=== PATIENT | female | born 1965 | race African-American/Black ===

== ENCOUNTER → 2016-07-11 | Outpatient (CLI) | payer MEDICARE, OTHER ==
[2016-02-23 16:30] VITALS: BP 154/89
[~2016-07-11] MED LIST: ALBU18HF IH; AMLO10TA2 PO; AMLO10TA4 PO; ASCO500T3 PO; ASPI-482 PO; ASPI81TA2 PO; BACL10TA PO; BISA10SU55 RC; CA C1TAB28 PO; CALC0.5C PO; CALC600T4 PO; CALC667C PO; CALC667C6; CEPH-263 PO; CHOL10003 PO; CHOL20004 PO; CLON0.5T PO; CLON1TAB PO; CLON1TAB23 PO; CYAN1CRY MC; DIPH25CA58 PO; DIPH50CA PO; DOXY100T9 PO; FLUT16SP2 NS; GABA-586 PO; GENT3.5O7 OP; GENT30CR TP; HYDR-2672 PO; HYDR-963 PO; HYDR-971 PO; HYOS0.12 PO; LIDO700A4 TP; LUBI24CA5 PO; LURA40TA PO; METR70GE VG; MICO1KIT VG; MULT-18 PO; MULT-658 PO; MYCO500T PO; NEBI5TAB2 PO; NORT10CA3 PO; NORT50CA3 PO; NYST1POW2 PO; NYST1POW4 MC; OMEG1CAP6 PO; ONDA4TAB10 PO; ONDA4TAB7 PO; OXYB5TAB7 PO; OXYC-250 PO; OXYC5TAB PO; PANT40GR PO; PANT40TA3 PO; PENI500T PO; POLY17PO5 PO; POLYETHYLENE G500 G1 MC; PRED1DRO OP; PRED1DRO OU; PROM25AM6 IJ; PROM25SU33 RC; RENAL VITAMIN PO; SEA-OMEGA 50 C1 EACH PO; SENN1TAB21 PO; SENN8.6T11 PO; SODI650T PO; SUCR1TAB29 PO; SULF1TAB24 PO; TACR1CAP2 PO; TACR1CAP4 PO; TIZA4CAP PO; TIZA4TAB8 PO; VENL150C PO; ZINC220T PO
--- NOTE | 2016-07-11 14:04 | RAD ---
EXAM: DIGITAL DIAGNOSTIC BILATERAL. HISTORY: Palpable lump in the right breast for 2 weeks. Pain. COMPARISON: None. This is considered a new baseline. FINDINGS: Digital mammography was performed. Computer-aided detection (CAD) was utilized. A BB was placed in the lateral right breast in area of clinical concern. The breast parenchyma demonstrates scattered fibroglandular densities (tissue density B). No dominant suspicious mass, suspicious microcalcifications, or architectural distortion is identified. The BB appears to correspond to a 1.5 cm well-circumscribed mass which appears to have areas of internal fat. The mass measures 1.5 cm in maximum dimension and is thought to be located in the lateral right breast at approximately 9-10:00, 10 cm from the nipple. This is compatible with oil cyst versus hamartoma. IMPRESSION: 1.5 cm benign-appearing, fat-containing mass in the lateral right breast at 9-10:00, 10 cm from the nipple. BI-RADS CATEGORY: 2 BENIGN FINDING(S) RECOMMENDED FOLLOW-UP: 12M 12 MONTH FOLLOW-UP PQRS compliance statement: Patient information was entered into a reminder system with a target due date for the next mammogram. Mammography is a sensitive method for finding small breast cancers, but it does not detect them all and is not a substitute for careful clinical examination. A negative mammogram does not negate a clinically suspicious finding and should not result in delay in biopsying a clinically suspicious abnormality. "Our facility is accredited by the [employer] Mammography Program."
== END | disposition home or self-care (01) ==
LOC: MAMMO 12:47
PROVIDERS: ATTEND Physician Assistant Medical
DX: N63 Unspecified lump in breast (principal)
CPT/HCPCS: G0204; 77066

== ENCOUNTER → 2016-08-03 | Outpatient (CLI) | payer MEDICARE, OTHER ==
[2016-02-23 16:30] VITALS: BP 154/89
[~2016-08-03] MED LIST changes: +ASPI-630 PO; -ASPI81TA2 PO; -CHOL20004 PO; +CHOL200074 PO; -HYDR-2672 PO; +HYDR-2766 PO; -LUBI24CA5 PO; +LUBI24CA7 PO; -METR70GE VG; +METR70GE16 VG; -OXYC-250 PO; +OXYC-328 PO; -SUCR1TAB29 PO; +SUCR1TAB35 PO
--- NOTE | 2016-08-03 13:08 | RAD ---
Right foot, 3 views, 08/03/2016: History: Foot pain The bony structures are demineralized. No fracture or dislocation is identified. Arterial calcifications are present. There is mild subcutaneous edema. IMPRESSION: 1. Demineralization. 2. No acute bony abnormality is detected.
== END | disposition home or self-care (01) ==
LOC: DXRADRC 11:10
PROVIDERS: ATTEND Physician Assistant Medical
DX: M81.0 Age-related osteoporosis without current pathological fracture (principal); M79.671 Pain in right foot; R60.9 Edema, unspecified
CPT/HCPCS: 73630

== ENCOUNTER 2016-09-17 23:45 | Emergency (ER) | payer MEDICARE, OTHER ==
[~2016-09-17] VITALS: Ht 167.6 cm; Wt 102.2 kg
[2016-09-17 23:45] VITALS: BP 123/80
[2016-09-18] MEDS ORDERED: METOCLOPRAMIDE HCL 10 MG/2 ML VIAL. IV ONE (00:15)
[2016-09-18] MEDS: diphenhydrAMINE 50 MG/ML VIAL IVP ONE (00:15)
[2016-09-18] MEDS ORDERED: diphenhydrAMINE 50 MG/ML VIAL IVP ONE (00:15)
[2016-09-18] MEDS ORDERED: IV NORMAL SALINE 500ML 500 ML IV ONE (00:15)
[2016-09-18] MEDS: METOCLOPRAMIDE HCL 10 MG/2 ML VIAL. IV ONE (00:15)
--- NOTE | 2016-09-18 00:37 | RAD ---
CT scan of the head without contrast 09/18/2016 Clinical History: Headache for 2 months. Technique: Unenhanced, contiguous, 5 mm axial sections were obtained through the head. One or more of the following individualized dose reduction techniques were utilized for this study: 1. Automated exposure control. 2. Adjustment of the mA and/or kV according to patient size. 3. Use of iterative reconstruction technique. Findings: Comparison study is dated 03/26/2015. There is mild generalized parenchymal atrophy. No acute parenchymal abnormality is seen. No extra-axial fluid collection is noted. No skull fracture is seen. Impression: . No acute intracranial abnormality is seen. Electronically signed by: Luis Shepherd MD (09/18/2016 12:35 AM)
--- NOTE | 2016-09-18 01:13 | PHYS DOC ---
Past History Past Medical History: CHF, Hypertension, Renal Disease, Renal Failure, Other Past Surgical History: Cholecystectomy, Gastric Bypass, Hysterectomy, Other Smoking: Non-smoker Alcohol Use: None Drug Use: None Adult General Chief Complaint Chief Complaint: HEADACHE HPI HPI 50-year-old female with history of end-stage renal disease presenting to the emergency department today with a headache. Her headache started at 3:00 yesterday morning. She describes headaches as sharp moderate pain. It is nonradiating intermittent and without alleviating factors. She has a history of end-stage renal disease and gets dialysis on Monday and Monday. She reports not getting dialysis on Monday because she was not feeling well. She also reports having been admitted after having a fall and sustaining a "head bleed". She reports this occurred approximately 2 weeks ago. Review of systems is negative for neck stiffness confusion cyanosis lethargy numbness weakness or tingling. She denies vision changes. All other review of systems is negative unless otherwise noted in history of present illness. ED course: 50-year-old female presenting to the emergency department with headache. Triage vital signs afebrile with normal blood pressure. Pertinent physical exam findings showed normal neurologic exam. Negative Brudzinski's tests. Negative Kernig sign. Patient was given IV fluids with migraine cocktail. Blood work obtained. Head CT negative for acute pathology. Blood work showed hyperkalemia likely secondary to missing dialysis. Patient was given calcium, insulin and glucose, and bicarbonate. She was then admitted to [facility] for renal consultation and probable dialysis. I discussed the case with Dr. Aguirre who accepted her. Review of Systems Review of Systems SEE ABOVE. Current Medications Current Medications Current Medications Medications (Trade) Dose Ordered Sig/Vitaliy Start Time Stop Time Status Last Admin Dose Admin Diphenhydramine HCl (Benadryl) 25 mg 1X ONCE 09/18/16 00:15 09/18/16 00:16 DC Metoclopramide HCl (Reglan) 10 mg 1X ONCE 09/18/16 00:15 09/18/16 00:16 DC Sodium Chloride 500 ml @ 0 mls/hr 1X ONCE 09/18/16 00:15 09/18/16 00:16 DC Allergies Allergies Allergies Coded Allergies Type Severity Reaction Last Updated Verified Iodinated Contrast Media - Oral and Allergy Severe 08/03/14 Yes shellfish derived Allergy Intermediate 08/03/14 Yes caffeine Allergy Mild due to kidney transplant 08/03/14 Yes ibuprofen Allergy Mild 08/03/14 Yes red dye Allergy Mild due to kidney transplant 08/03/14 Yes I S O L A T I O N *CONTACT* Allergy Unknown 04/15/15 Yes Physical Exam Physical Exam Constitutional: Well developed, well nourished, no acute distress, non-toxic appearance. [] HENT: Normocephalic, atraumatic, bilateral external ears normal, oropharynx moist, no oral exudates, nose normal. [] Eyes: PERRLA, EOMI, conjunctiva normal, no discharge. [] Neck: Normal range of motion, no tenderness, supple, no stridor. [] Cardiovascular:Heart rate regular rhythm, no murmur [] Lungs & Thorax: Bilateral breath sounds clear to auscultation [] Abdomen: Bowel sounds normal, soft, no tenderness, no masses, no pulsatile masses. [] Skin: Warm, dry, no erythema, no rash. [] Back: No tenderness, no CVA tenderness. [] Extremities: No tenderness, no cyanosis, no clubbing, ROM intact, no edema. [] Neurologic: Mental status: Awake oriented and alert x3 Cranial nerves: Extraocular movements intact, eyebrows guido bilaterally smile symmetric, uvula elevation, shoulder shrug intact, tongue protrusion normal DTRs: 2+ Sensation: equal and normal in all extremities Strength: 5/5 in upper and lower extremities bilaterally Psychologic: Affect normal, judgement normal, mood normal. [] Current Patient Data Vital Signs Vital Signs Date Time Temp Pulse Resp B/P (MAP) Pulse Ox O2 Delivery O2 Flow Rate FiO2 09/17/16 23:45 98.4 82 20 100 Room Air EKG EKG EKG shows sinus rhythm with a regular rate. ST segments congruent. Intervals are within normal limits. Reviewed by myself [] Radiology/Procedures Radiology/Procedures [] Course & Med Decision Making Course & Med Decision Making Pertinent Labs and Imaging studies reviewed. (See chart for details) [] Dragon Disclaimer Dragon Disclaimer This chart was dictated in whole or in part using Voice Recognition software in a busy, high-work load, and often noisy Emergency Department environment. It may contain unintended and wholly unrecognized errors or omissions. Departure Departure: Impression: Primary Impression: Headache Additional Impressions: ESRD (end stage renal disease) Hyperkalemia Disposition: 02 XFER SHT-TRM HOSP ([facility]) Condition: STABLE Referrals: KARON ELLIS (PCP) Problem Qualifiers ZARIA SERRANO MD Sep 18, 2016 01:13
[2016-09-18] MEDS ORDERED: DEXAMETHASONE SOD PHOS 10 MG/ML VIAL IV ONE (01:30)
[2016-09-18 01:55] LABS: BASO % 0 % (0-3); EOS # 0.2 x10^3/uL (0.0-0.7); EOS % 3 % (0-3); HEMOGLOBIN 10.2 g/dL (12.0-15.5); LYMPH # 1.6 x10^3/uL (1.0-4.8); LYMPH % 26 % (24-48); MEAN CORPUSCULAR HEMOGLOBIN 31 pg (25-35); MEAN CORPUSCULAR HGB CONC 33 g/dL (31-37); MEAN CORPUSCULAR VOLUME 95 fL (79-100); MONO # 0.8 x10^3/uL (0.0-1.1); MONO % 13 % (0-9); NEUT # 3.5 x10^3uL (1.8-7.7); NEUT % 57 % (31-73); PLATELET COUNT 171 x10^3/uL (140-400); RED BLOOD COUNT 3.26 x10^6/uL (3.50-5.40); RED CELL DISTRIBUTION WIDTH 14.4 % (11.5-14.5); WHITE BLOOD COUNT 6.2 x10^3/uL (4.0-11.0)
[2016-09-18 02:13] LABS: ALBUMIN 2.7 g/dL (3.4-5.0); CALCIUM 8.6 mg/dL (8.5-10.1); CREATININE 8.5 mg/dL (0.6-1.0); DIRECT BILIRUBIN 0.1 mg/dL (0.0-0.2); TOTAL BILIRUBIN 0.5 mg/dL (0.2-1.0)
[2016-09-18 02:21] LABS: POTASSIUM 5.6 mmol/L (3.5-5.1)
[2016-09-18] MEDS ORDERED: ONDANSETRON PF 4 MG/2 ML VIAL. IV ONE (02:30)
[2016-09-18] MEDS ORDERED: HYDROmorphone PF 1 MG/ML DISP.SYRIN IV ONE (02:30)
[2016-09-18] MEDS ORDERED: DEXTROSE 50% 25 GM / 50ML DISP.SYRIN. IV ONE (02:45)
[2016-09-18] MEDS ORDERED: CALCIUM GLUCONATE 1,000 MG/10 ML VIAL IV ONE (02:45)
[2016-09-18] MEDS ORDERED: SODIUM BICARB ADULT 8.4% 50 MEQ/50 ML DISP.SYRIN. IV ONE (02:45)
[2016-09-18] MEDS ORDERED: INSULIN REGULAR 100 UNIT/ML 10ML VIAL. IV ONE (02:45)
--- NOTE | 2016-09-18 05:57 | EKG ---
[address] [address] Test Date: 2016-09-18 Test Time: 02:34:24 Pat Name: DINORAH VÁZQUEZ Department: Room: Gender: F Unit [employer]: KAVITA : 1965 Requested By: ZARIA SERRANO Order Number: [id number] Reading MD: Measurements Intervals Ong Rate: 76 P: 36 ND: 178 QRS: 14 QRSD: 92 T: 78 QT: 376 QTc: 427 Interpretive Statements SINUS RHYTHM R-S TRANSITION ZONE IN V LEADS DISPLACED TO THE LEFT QRS(T) CONTOUR ABNORMALITY CANNOT RULE OUT ANTEROSEPTAL MYOCARDIAL DAMAGE RI6.01 Unconfirmed report No previous ECG available for comparison
== END 2016-09-18 03:28 | disposition short-term general hospital (02) ==
LOC: ER 23:45
DX: R51 Headache (principal); I13.2 Hypertensive heart and chronic kidney disease with heart failure and with stage 5 chronic kidney disease, or end stage renal disease; N18.6 End stage renal disease; I50.9 Heart failure, unspecified; E87.5 Hyperkalemia; Z98.84 Bariatric surgery status; Z88.8 Allergy status to other drugs, medicaments and biological substances; Z88.6 Allergy status to analgesic agent; Z91.041 Radiographic dye allergy status; Z91.013 Allergy to seafood
CPT/HCPCS: 36415; 70450; 80048; 80076; 83690; 84484; 85027; 85610; 85730; 93005; 96361; 96374; 96375; 99285; J0610; J1100; J1170; J1200; J1815; J2405; J2765; J7040

== ENCOUNTER → 2016-09-26 | Outpatient (CLI) | payer MEDICARE, OTHER ==
[2016-09-17 23:45] VITALS: BP 123/80
--- NOTE | 2016-09-26 11:26 | RAD ---
Left hand, 3 views, 09/26/2016: History: Pain and swelling The bony structures are demineralized. No fracture or dislocation is identified. No significant arthritic change is evident. IMPRESSION: 1. Demineralization. 2. No acute bony abnormality is detected. Left forearm, 2 views, 09/26/2016: No fracture or destructive bony lesion is seen. There is moderate subcutaneous edema. There is a cluster of heterogeneous calcifications in the antecubital fossa region. These may be vascular. IMPRESSION: No acute bony abnormality is detected. Left humerus, 2 views, 09/26/2016: The bony structures are demineralized. No fracture or destructive bony lesion is seen. Calcifications are again noted in the antecubital fossa region and the lower aspect of the upper arm. On one view they appear to be related to a oval-shaped mass measuring approximately 7 x 2.5 cm. IMPRESSION: 1. No acute bony abnormality is detected. 2. Partially calcified mass in the antecubital fossa. This could represent vascular calcification related to an aneurysm or old AV fistula, or dystrophic calcification related to a soft tissue mass or old hematoma. Has there been previous vascular surgery or trauma in this region? Sonographic evaluation may be helpful, if clinically indicated.
== END | disposition home or self-care (01) ==
LOC: DXRADRC 10:44
PROVIDERS: ATTEND Family Medicine
DX: M81.0 Age-related osteoporosis without current pathological fracture (principal); I89.0 Lymphedema, not elsewhere classified; M79.89 Other specified soft tissue disorders
CPT/HCPCS: 73060; 73090; 73130

== ENCOUNTER → 2016-11-02 | Outpatient (CLI) | payer MEDICARE, OTHER ==
--- NOTE | 2016-11-02 08:55 | RAD ---
Chest radiograph 11/02/2016 at 0812 hours Indication: Chest pain Comparison: Chest radiograph 01/20/2016 Technique: Single frontal view of the chest is provided. Findings: Cardiomediastinal silhouette is within normal limits. No pleural effusions, pulmonary vascular congestion or pneumothorax. The lungs are clear. Osseous structures are normal. Impression: No acute cardiopulmonary process.
== END | disposition home or self-care (01) ==
LOC: DXRADRC 08:04
PROVIDERS: ATTEND Physician Assistant Medical
DX: R07.9 Chest pain, unspecified (principal)
CPT/HCPCS: 71020

== ENCOUNTER 2016-11-19 11:24 | Emergency (ER) | payer MEDICARE, OTHER ==
[2016-11-19 12:25] LABS: BASO % 0 % (0-3); EOS # 0.3 x10^3/uL (0.0-0.7); EOS % 4 % (0-3); HEMATOCRIT 30.5 % (36.0-47.0); HEMOGLOBIN 9.9 g/dL (12.0-15.5); LYMPH # 1.5 x10^3/uL (1.0-4.8); LYMPH % 24 % (24-48); MEAN CORPUSCULAR HEMOGLOBIN 31 pg (25-35); MEAN CORPUSCULAR HGB CONC 32 g/dL (31-37); MEAN CORPUSCULAR VOLUME 96 fL (79-100); MONO # 0.8 x10^3/uL (0.0-1.1); MONO % 13 % (0-9); NEUT # 3.7 x10^3uL (1.8-7.7); NEUT % 59 % (31-73); PLATELET COUNT 159 x10^3/uL (140-400); RED BLOOD COUNT 3.17 x10^6/uL (3.50-5.40); RED CELL DISTRIBUTION WIDTH 15.6 % (11.5-14.5); WHITE BLOOD COUNT 6.4 x10^3/uL (4.0-11.0)
[2016-11-19 12:37] LABS: ALBUMIN 2.7 g/dL (3.4-5.0); ALBUMIN/GLOBULIN RATIO 0.7 (1.0-1.7); CREATININE 11.2 mg/dL (0.6-1.0); GFR 4.3; POTASSIUM 5.9 mmol/L (3.5-5.1); TOTAL BILIRUBIN 0.4 mg/dL (0.2-1.0); TOTAL PROTEIN 6.7 g/dL (6.4-8.2)
[2016-11-19] MEDS ORDERED: DICYCLOMINE 20 MG/2 ML AMPUL. IM ONE (12:45)
--- NOTE | 2016-11-19 14:17 | PHYS DOC ---
Past History Past Medical History: CHF, Hypertension, Renal Disease, Renal Failure, Other Past Surgical History: Cholecystectomy, Gastric Bypass, Hysterectomy, Other Smoking: Non-smoker Alcohol Use: None Drug Use: None Adult General Chief Complaint Chief Complaint: WEAKNESS/GENERALIZED HPI HPI Patient is a 50-year-old dialysis patient who originally came in for outpatient labs but then ended up checking into the ED with a complaint of weakness. Patient normally has dialysis on Monday, , and Monday. She missed and she missed today which is Monday, because she has been having "a lot of diarrhea". She also complains of crampy pain on the right side of her abdomen. It seems like she didn't go to dialysis because she was afraid she might have diarrhea during her dialysis session. She came to the hospital in a cab today. She brings with her a large [employer] drink and a bag with a [employer] cheeseburger in it. 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 Flores Review of Systems Review of Systems Constitutional: Denies fever or chills [] HENT: Denies nasal congestion or sore throat [] Respiratory: Denies cough or shortness of breath [] Cardiovascular: Denies chest pain GI: As in history of present illness Musculoskeletal: Denies back pain or joint pain [] Integument: Denies rash or skin lesions [] Neurologic: Denies headache, focal weakness or sensory changes [] Endocrine: Denies polyuria or polydipsia [] Current Medications Current Medications Current Medications Medications (Trade) Dose Ordered Sig/Vitaliy Start Time Stop Time Status Last Admin Dose Admin Dicyclomine HCl (Bentyl) 10 mg 1X ONCE 11/19/16 12:45 11/19/16 12:46 DC 11/19/16 13:26 10 MG Allergies Allergies Allergies Coded Allergies Type Severity Reaction Last Updated Verified Iodinated Contrast Media - Oral and Allergy Severe 08/03/14 Yes shellfish derived Allergy Intermediate 08/03/14 Yes caffeine Allergy Mild due to kidney transplant 08/03/14 Yes ibuprofen Allergy Mild 08/03/14 Yes red dye Allergy Mild due to kidney transplant 08/03/14 Yes I S O L A T I O N *CONTACT* Allergy Unknown 04/15/15 Yes Physical Exam Physical Exam Constitutional: Well developed, well nourished, no acute distress, non-toxic appearance. Alert, mentating normally, no dyspnea, warm and dry. HENT: Normocephalic, atraumatic, bilateral external ears normal, nose normal. [] Eyes: conjunctiva normal, no discharge. [] Neck: Normal range of motion, no stridor. [] Cardiovascular:Heart rate regular rhythm, no murmur [] Lungs & Thorax: Bilateral breath sounds clear to auscultation, good air movement throughout, no rales Abdomen: Bowel sounds normal, soft, no tenderness, no masses, no pulsatile masses. [] Skin: Warm, dry, no erythema, no rash. [] Extremities: No tenderness, no cyanosis, no clubbing, ROM intact, no edema. [] Neurologic: Alert and oriented X 3, normal motor function, normal sensory function, no focal deficits noted. [] Current Patient Data Vital Signs Vital Signs Date Time Temp Pulse Resp B/P (MAP) Pulse Ox O2 Delivery O2 Flow Rate FiO2 11/19/16 11:24 98.6 92 16 99 Room Air Lab Results Laboratory Tests Test 11/19/16 12:10 White Blood Count 6.4 x10^3/uL (4.0-11.0) Red Blood Count 3.17 x10^6/uL (3.50-5.40) L Hemoglobin 9.9 g/dL (12.0-15.5) L Hematocrit 30.5 % (36.0-47.0) L Mean Corpuscular Volume 96 fL (79-100) Mean Corpuscular Hemoglobin 31 pg (25-35) Mean Corpuscular Hemoglobin Concent 32 g/dL (31-37) Red Cell Distribution Width 15.6 % (11.5-14.5) H Platelet Count 159 x10^3/uL (140-400) Neutrophils (%) (Auto) 59 % (31-73) Lymphocytes (%) (Auto) 24 % (24-48) Monocytes (%) (Auto) 13 % (0-9) H Eosinophils (%) (Auto) 4 % (0-3) H Basophils (%) (Auto) 0 % (0-3) Neutrophils # (Auto) 3.7 x10^3uL (1.8-7.7) Lymphocytes # (Auto) 1.5 x10^3/uL (1.0-4.8) Monocytes # (Auto) 0.8 x10^3/uL (0.0-1.1) Eosinophils # (Auto) 0.3 x10^3/uL (0.0-0.7) Basophils # (Auto) 0.0 x10^3/uL (0.0-0.2) Sodium Level 135 mmol/L (136-145) L Potassium Level 5.9 mmol/L (3.5-5.1) H Chloride Level 97 mmol/L (98-107) L Carbon Dioxide Level 24 mmol/L (21-32) Anion Gap 14 (6-14) Blood Urea Nitrogen 95 mg/dL (7-20) H Creatinine 11.2 mg/dL (0.6-1.0) H Estimated GFR (Cockcroft-Gault) 4.3 BUN/Creatinine Ratio 8 (6-20) Glucose Level 105 mg/dL (70-99) H Calcium Level 8.0 mg/dL (8.5-10.1) L Total Bilirubin 0.4 mg/dL (0.2-1.0) Aspartate Amino Transferase (AST) 13 U/L (15-37) L Alanine Aminotransferase (ALT) 10 U/L (14-59) L Alkaline Phosphatase 89 U/L (46-116) Total Protein 6.7 g/dL (6.4-8.2) Albumin 2.7 g/dL (3.4-5.0) L Albumin/Globulin Ratio 0.7 (1.0-1.7) L EKG EKG [] Radiology/Procedures Radiology/Procedures [] Course & Med Decision Making Course & Med Decision Making Pertinent Labs and Imaging studies reviewed. (See chart for details) 50-year-old female dialysis patient presents after missing dialysis today and 2 days ago due to diarrhea. I talked to the patient about her options. She states that she knows she cannot go until Monday, she will get too filled up with fluid and go into congestive heart failure. She believe she needs to be dialyzed soon and not wait until Monday. Currently she is not having dyspnea or other symptoms. Labs were obtained, she is hyperkalemic at 5.9. Creatinine is elevated consistent with skipping dialysis twice. Discussed the patient with Dr. Flores, on-call for nephrology. He recommends transferring the patient to [facility] where he will arrange for dialysis. Discussed this with the patient who is agreeable. I discussed the case with Dr. Rahman, hospitalist promotional representative at [facility]. He will accept the patient to be transferred to [place]. Transfer paperwork was completed and patient was sent by EMS to [place]. She was stable in the ED. With her complaint of recent diarrhea, I elected to not treat her mild hyperkalemia today since she will be going to [place] to get dialysis. [] Dragon Disclaimer Dragon Disclaimer This chart was dictated in whole or in part using Voice Recognition software in a busy, high-work load, and often noisy Emergency Department environment. It may contain unintended and wholly unrecognized errors or omissions. Departure Departure: Impression: Primary Impression: ESRD (end stage renal disease) Additional Impression: Admission for dialysis Disposition: 02 XFER SHT-TRM HOSP Condition: STABLE Referrals: KARON ELLIS (PCP) Problem Qualifiers KIM CLARKE MD Nov 19, 2016 14:17
[2016-11-19 14:40] VITALS: BP 107/77
== END 2016-11-19 15:00 | disposition short-term general hospital (02) ==
LOC: ER 11:24
DX: N18.6 End stage renal disease (principal); E11.22 Type 2 diabetes mellitus with diabetic chronic kidney disease; I13.2 Hypertensive heart and chronic kidney disease with heart failure and with stage 5 chronic kidney disease, or end stage renal disease; I50.9 Heart failure, unspecified; Z99.2 Dependence on renal dialysis; Z98.84 Bariatric surgery status; Z88.6 Allergy status to analgesic agent; Z91.041 Radiographic dye allergy status; Z88.5 Allergy status to narcotic agent; Z91.013 Allergy to seafood
CPT/HCPCS: 36415; 80053; 85025; 96372; 99285; J0500

== ENCOUNTER → 2016-11-19 | Outpatient (CLI) | payer MEDICARE, OTHER ==
[~2016-11-19] MED LIST changes: -GENT3.5O7 OP; +GENT3.5O9 OP
--- NOTE | 2016-11-19 12:05 | RAD ---
Examination: Frontal view of the abdomen History: History of right upper quadrant pain Comparison: 11/14/2014. Findings: Moderate amount of feces noted in the colon. The bowel gas pattern appears unremarkable. Surgical clips identified in right upper quadrant of the pelvis. IVC filter is again identified. Lower lumbar hardware identified. Impression: 1. Unremarkable bowel gas pattern.
== END | disposition home or self-care (01) ==
LOC: RAD 10:47
PROVIDERS: ATTEND General Practice
DX: R10.11 Right upper quadrant pain (principal); R19.7 Diarrhea, unspecified
CPT/HCPCS: 74000

== ENCOUNTER → 2016-11-25 | Outpatient (CLI) | payer MEDICARE, OTHER ==
[2016-11-19 14:40] VITALS: BP 107/77
--- NOTE | 2016-11-25 14:41 | RAD ---
Chest radiograph and right rib series 11/25/2016 2:00 AM Indication: Right rib pain Comparison: Chest radiograph 11/02/2016 Technique: Frontal view of the chest and 3 dedicated views of the right ribs are provided. Findings: A left chest wall infusion port catheter is identified with the distal tip projecting over the left brachiocephalic vein. Cardiomediastinal silhouette is within normal limits. No pleural effusions, pulmonary vascular congestion or pneumothorax. The lungs are clear. Osseous structures are normal. No acutely displaced right-sided rib fracture is identified. IVC filter is partially visualized. Cholecystectomy clips are identified in the right upper quadrant. Impression: 1. No acute cardiopulmonary process. 2. No acutely displaced right-sided rib fracture. 3. New left chest wall infusion port catheter with the distal tip projecting of the brachiocephalic vein.
== END | disposition home or self-care (01) ==
LOC: DXRADRC 13:24
PROVIDERS: ATTEND Physician Assistant Medical
DX: R07.81 Pleurodynia (principal); Z90.49 Acquired absence of other specified parts of digestive tract
CPT/HCPCS: 71101

== ENCOUNTER → 2016-12-08 | Outpatient (CLI) | payer MEDICARE, OTHER ==
[2016-11-19 14:40] VITALS: BP 107/77
[~2016-12-08] MED LIST changes: -OXYC5TAB PO; +OXYC5TAB95 PO
--- NOTE | 2016-12-08 10:40 | RAD ---
Abdomen, 2 views, 12/08/2016: History: Abdominal pain and diarrhea Gas is present in scattered bowel loops in a nonspecific pattern. There is a moderate amount of stool in scattered portions of the colon. No free air is seen in the abdomen. There are numerous surgical clips and sutures in the abdomen and pelvis. An inferior vena cava filter remains in place at the L2-3 level. There is no evidence of organomegaly. Postsurgical changes are again noted in the lower lumbar spine. IMPRESSION: No acute abdominal abnormality is detected.
== END | disposition home or self-care (01) ==
LOC: DXRADRC 10:06
PROVIDERS: ATTEND Physician Assistant
DX: R10.84 Generalized abdominal pain (principal); R19.7 Diarrhea, unspecified
CPT/HCPCS: 74020

== ENCOUNTER → 2017-01-02 | Outpatient (CLI) | payer MEDICARE, OTHER ==
[2017-01-02 13:42] LABS: CALCIUM 8.6 mg/dL (8.5-10.1); CREATININE 8.5 mg/dL (0.6-1.0); GFR 5.9; POTASSIUM 4.8 mmol/L (3.5-5.1)
--- NOTE | 2017-01-02 14:20 | NUR ---
Patient to 107. Port accessed per sterile technique, lab drawn per order, port flushed with 20cc NS, de-accessed. Patient off unit with caregiver.
== END | disposition home or self-care (01) ==
LOC: LAB 12:23
PROVIDERS: ATTEND Physician Assistant Medical
DX: E87.5 Hyperkalemia (principal)
CPT/HCPCS: 36415; 36591; 80048

== ENCOUNTER → 2017-04-06 | Outpatient (CLI) | payer MEDICARE, OTHER ==
[~2017-04-06] MED LIST changes: -CALC0.5C PO; +CALC0.5C8 PO
[2017-04-06 10:34] LABS: BASO % 0 % (0-3); EOS # 0.1 x10^3/uL (0.0-0.7); EOS % 3 % (0-3); HEMATOCRIT 29.7 % (36.0-47.0); HEMOGLOBIN 9.6 g/dL (12.0-15.5); LYMPH # 1.4 x10^3/uL (1.0-4.8); LYMPH % 28 % (24-48); MEAN CORPUSCULAR HEMOGLOBIN 32 pg (25-35); MEAN CORPUSCULAR HGB CONC 32 g/dL (31-37); MEAN CORPUSCULAR VOLUME 98 fL (79-100); MONO # 0.3 x10^3/uL (0.0-1.1); MONO % 7 % (0-9); NEUT # 3.1 x10^3uL (1.8-7.7); NEUT % 62 % (31-73); PLATELET COUNT 147 x10^3/uL (140-400); RED BLOOD COUNT 3.04 x10^6/uL (3.50-5.40); RED CELL DISTRIBUTION WIDTH 16.7 % (11.5-14.5)
[2017-04-06 10:42] LABS: ALBUMIN 2.4 g/dL (3.4-5.0); ALBUMIN/GLOBULIN RATIO 0.6 (1.0-1.7); CALCIUM 8.7 mg/dL (8.5-10.1); CREATININE 9.4 mg/dL (0.6-1.0); GFR 5.3; POTASSIUM 5.6 mmol/L (3.5-5.1); TOTAL BILIRUBIN 0.3 mg/dL (0.2-1.0); TOTAL PROTEIN 6.1 g/dL (6.4-8.2)
--- NOTE | 2017-04-06 12:20 | RAD ---
Abdomen, 2 views, 04/06/2017: History: Chronic abdominal pain Comparison is made to a study from 12/08/2016. Multiple surgical clips and sutures are present in the abdomen and pelvis. A prominent gas-filled structure in the left midabdomen probably represents a dilated small bowel loop related to previous small bowel surgery. This was also evident on previous CT studies such as the exam from 04/11/2015. There is a moderate amount of stool in the colon. No free air seen in the abdomen. Postsurgical changes with instrumentation are again noted in the lower lumbar spine. IMPRESSION: 1. Chronic gaseous distention of a small bowel loop in the left mid to upper abdomen, presumably related to previous surgeries. 2. No acute abdominal abnormality is detected.
== END | disposition home or self-care (01) ==
LOC: PMG 09:23
PROVIDERS: ATTEND Physician Assistant
DX: K63.89 Other specified diseases of intestine (principal); Z98.890 Other specified postprocedural states
CPT/HCPCS: 36415; 74021; 80053; 82150; 83690; 85025; 85651

== ENCOUNTER 2017-04-30 17:23 | Emergency (ER) | payer MEDICARE, OTHER ==
[~2017-04-30] VITALS: Ht 167.6 cm; Wt 88.9 kg
[2017-04-30 18:58] VITALS: BP 133/76
--- NOTE | 2017-04-30 21:50 | PHYS DOC ---
Past History Past Medical History: CHF, Hypertension, Renal Disease, Renal Failure, Other Past Surgical History: Cholecystectomy, Gastric Bypass, Hysterectomy, Other Smoking: Non-smoker Alcohol Use: None Drug Use: None Adult General Chief Complaint Chief Complaint: NOSEBLEED HPI HPI 51-year-old female with a history of morbid obesity and end-stage renal disease on hemodialysis now presents the emergency department complaining of intermittent mild nosebleed today. Patient states she has a history of mild anemia. She takes aspirin as prescribed. She had some mild nose bleeding this morning that was intermittent and small amount of blood loss. Small amount of oozing this evening so patient came to the emergency department. No dizziness near syncope chest pain or shortness of breath. Otherwise asymptomatic Review of Systems Review of Systems Constitutional: Denies fever or chills [] Eyes: Denies change in visual acuity, redness, or eye pain [] HENT: Denies nasal congestion or sore throat [] Respiratory: Denies cough or shortness of breath [] Cardiovascular: No additional information not addressed in HPI [] GI: Denies abdominal pain, nausea, vomiting, bloody stools or diarrhea [] : Denies dysuria or hematuria [] Musculoskeletal: Denies back pain or joint pain [] Integument: Denies rash or skin lesions [] Neurologic: Denies headache, focal weakness or sensory changes [] Endocrine: Denies polyuria or polydipsia [] All other systems were reviewed and found to be within normal limits, except as documented in this note. Allergies Allergies Allergies Coded Allergies Type Severity Reaction Last Updated Verified Iodinated Contrast- Oral and IV Dye Allergy Severe 08/03/14 Yes shellfish derived Allergy Intermediate 08/03/14 Yes caffeine Allergy Mild due to kidney transplant 08/03/14 Yes ibuprofen Allergy Mild 08/03/14 Yes red dye Allergy Mild due to kidney transplant 08/03/14 Yes I S O L A T I O N *CONTACT* Allergy Unknown 04/15/15 Yes Physical Exam Physical Exam Morbidly obese female no acute distress. No active oropharyngeal bleeding. Nasal clamp in place. No pallor Constitutional: Well developed, well nourished, no acute distress, non-toxic appearance. [] HENT: Normocephalic, atraumatic, bilateral external ears normal, oropharynx moist, no oral exudates, nose normal. [] Eyes: PERRLA, EOMI, conjunctiva normal, no discharge. [] Neck: Normal range of motion, no tenderness, supple, no stridor. [] Cardiovascular: No tachycardia, no murmur [] Lungs & Thorax: Bilateral breath sounds clear to auscultation [] Abdomen: Bowel sounds normal, soft, no tenderness, no masses, no pulsatile masses. [] Skin: Warm, dry, no erythema, no rash. [] Back: No tenderness, no CVA tenderness. [] Extremities: No tenderness, no cyanosis, no clubbing, ROM intact, no edema. [] Neurologic: Alert and oriented X 3, normal motor function, normal sensory function, no focal deficits noted. [] Psychologic: Affect normal, judgement normal, mood normal. [] EKG EKG [] Radiology/Procedures Radiology/Procedures [] Course & Med Decision Making Course & Med Decision Making Pertinent Labs and Imaging studies reviewed. (See chart for details) Patient with mild epistaxis now hemostatic. Will check i-STAT to rule out dropping hemoglobin however patient's vital signs are unremarkable. She is well- appearing. We'll follow clinically to rule out the need for nasal packing however this does not appear to be indicated her initial evaluation. I-STAT ordered however prior to this being done patient decided to leave AGAINST MEDICAL ADVICE. She was aware that she is welcome to return any time. [] Dragon Disclaimer Dragon Disclaimer This electronic medical record was generated, in whole or in part, using a voice recognition dictation system. Departure Departure: Impression: Primary Impression: Epistaxis Disposition: AGAINST MEDICAL ADVICE Condition: STABLE Referrals: KARON ELLIS (PCP) CHERYL HARTMAN MD Apr 30, 2017 21:50
== END 2017-04-30 20:41 | disposition left against medical advice (07) ==
LOC: ER 17:23
DX: R04.0 Epistaxis (principal); I13.2 Hypertensive heart and chronic kidney disease with heart failure and with stage 5 chronic kidney disease, or end stage renal disease; N18.6 End stage renal disease; I50.9 Heart failure, unspecified; Z99.2 Dependence on renal dialysis; E66.01 Morbid (severe) obesity due to excess calories; Z68.31 Body mass index [BMI] 31.0-31.9, adult; Z98.84 Bariatric surgery status; Z79.82 Long term (current) use of aspirin; Z88.8 Allergy status to other drugs, medicaments and biological substances; Z88.6 Allergy status to analgesic agent; Z91.041 Radiographic dye allergy status; Z91.013 Allergy to seafood
CPT/HCPCS: 99281

== ENCOUNTER → 2017-05-29 | Outpatient (CLI) | payer MEDICARE, OTHER ==
[2017-04-30 18:58] VITALS: BP 133/76
--- NOTE | 2017-05-29 16:22 | RAD ---
Chest, 2 views, 05/29/2017: History: Cough, congestion Comparison is made to a study from 11/25/2016. A left Port-A-Cath extends into the superior vena cava. The heart size and pulmonary vascularity are normal. No pulmonary infiltrates are seen. There is no evidence of pleural fluid. A mild thoracolumbar scoliosis is evident. IMPRESSION: 1. A left Port-A-Cath extends into the superior vena cava. 2. No acute cardiopulmonary abnormality is detected.
== END | disposition home or self-care (01) ==
LOC: DXRAD 15:35
PROVIDERS: ATTEND Physician Assistant Medical
DX: M41.85 Other forms of scoliosis, thoracolumbar region (principal); R09.89 Other specified symptoms and signs involving the circulatory and respiratory systems
CPT/HCPCS: 71046

== ENCOUNTER 2017-06-02 14:10 | Emergency (ER) | payer MEDICARE, OTHER ==
[~2017-06-02] VITALS: Ht 167.6 cm; Wt 102.2 kg
--- NOTE | 2017-06-02 14:16 | PHYS DOC ---
Past History Past Medical History: CHF, Hypertension, Renal Disease, Renal Failure, Other Past Surgical History: Cholecystectomy, Gastric Bypass, Hysterectomy, Other Smoking: Non-smoker Alcohol Use: None Drug Use: None Adult General Chief Complaint Chief Complaint: CHEST PAIN HPI HPI Patient is a 51 year old English female who presents with who complains. She states she's had intermittent chest pain for the last 3-4 days. She states that worse. She states is substernal and doesn't radiate she denies any shortness of breath or nausea or vomiting associated with this. She states she's never had pain like this before. She thinks she might of had a cardiac catheter at but is unsure. She also has a history of end-stage renal disease and dialyzes Saturdays and did not go to dialysis yesterday as she didn't feel well and she had some diarrhea. She states this is all resolved today. She' s also been complaining of her migraine headache this been going on since Monday. He states it's a pain that's in the top of her head and the back of her head. She is taking her migraine medicines twice a day as directed but has not gone away. She does not know the name of these medicines. She denies any fevers chills nausea vomiting, neck stiffness, confusion. She states her dialysis doctor is Dr. Flores. In route she received 324 aspirin by EMS. Review of Systems Review of Systems Constitutional: Denies fever or chills [] Eyes: Denies change in visual acuity, redness, or eye pain [] HENT: Denies nasal congestion or sore throat [] Respiratory: Denies cough or shortness of breath [] Cardiovascular: No additional information not addressed in HPI [] GI: Denies abdominal pain, nausea, vomiting, bloody stools or diarrhea [] : Denies dysuria or hematuria [] Musculoskeletal: Denies back pain or joint pain [] Integument: Denies rash or skin lesions [] Neurologic: Positive for headache,Denies focal weakness or sensory changes [] Endocrine: Denies polyuria or polydipsia [] All other systems were reviewed and found to be within normal limits, except as documented in this note. Allergies Allergies Allergies Coded Allergies Type Severity Reaction Last Updated Verified Iodinated Contrast- Oral and IV Dye Allergy Severe 08/03/14 Yes shellfish derived Allergy Intermediate 08/03/14 Yes caffeine Allergy Mild due to kidney transplant 08/03/14 Yes ibuprofen Allergy Mild 08/03/14 Yes red dye Allergy Mild due to kidney transplant 08/03/14 Yes I S O L A T I O N *CONTACT* Allergy Unknown 04/15/15 Yes Physical Exam Physical Exam Constitutional: Well developed, well nourished, no acute distress, non-toxic appearance. [] HENT: Normocephalic, atraumatic, bilateral external ears normal, oropharynx moist, no oral exudates, nose normal. [] Eyes: PERRLA, EOMI, conjunctiva normal, no discharge. [] Neck: Normal range of motion, no tenderness, supple, no stridor. [] Cardiovascular:Heart rate regular rhythm, no murmur [] Lungs & Thorax: Bilateral breath sounds clear to auscultation [] Abdomen: Bowel sounds normal, soft, no tenderness, no masses, no pulsatile masses. [] Skin: Warm, dry, no erythema, no rash. [] Back: No tenderness, no CVA tenderness. [] Extremities: No tenderness, no cyanosis, no clubbing, ROM intact, no edema. [] Neurologic: Alert and oriented X 3, normal motor function, normal sensory function, no focal deficits noted. [] Psychologic: Affect normal, judgement normal, mood normal. [] EKG EKG First EKG had limb leads reversed. EKG shows sinus rhythm [address] elevations or T-wave inversions, normal axis, QTC 460 ms, as interpreted by me. Radiology/Procedures Radiology/Procedures [address] [address] IMAGING REPORT Signed PATIENT: DINORAH VÁZQUEZ ACCOUNT: [id number] : 1965 LOCATION: ER AGE: 51 SEX: F EXAM STATUS: PRE ER ORD. PHYSICIAN: ABEL AVERY MD REASON: chest pain PROCEDURE: PORTABLE CHEST 1V PORTABLE CHEST 1V Clinical Indication: CHEST PAIN Comparison: Two-view chest May 29, 2017. Findings: Left chest Port-A-Cath is stable. The cardiomediastinal silhouette is normal. Lungs are clear. There is no pneumothorax. No pleural effusion is appreciated. No acute bone abnormality. IMPRESSION: No acute cardiopulmonary process. Electronically signed by: Jin Conn MD (06/02/2017 2:39 PM) [id number] DICTATED AND SIGNED BY: JIN CONN MD DATE: 06/02/17 1438 CC: ABEL AVERY MD; [facility]ON [place] ~ [place] [address] IMAGING REPORT Signed PATIENT: DINORAH VÁZQUEZ ACCOUNT: [id number] : 1965 LOCATION: ER AGE: 51 SEX: F EXAM STATUS: REG ER ORD. PHYSICIAN: ABEL AVERY MD REASON: headache PROCEDURE: CT HEAD WO CONTRAST CT of the head without contrast History:HEADACHE Technique: Standard noncontrast images are obtained. Exposure: One or more of the following individualized dose reduction techniques were utilized for this examination: 1. Automated exposure control 2. Adjustment of the mA and/or kV according to patient size 3. Use of iterative reconstruction technique. Comparison: September 18, 2016 Findings: Posterior fossa is unremarkable. No evidence of acute intracranial hemorrhage, mass effect, midline shift or abnormal extra-axial fluid collection. Gonzalez-white matter distinction is intact. Mild prominence of ventricles and sulci, compatible with atrophy, unchanged since the prior study. Visualized orbits are unremarkable. Visualized paranasal sinuses and mastoids are clear. No acute calvarial abnormality Impression: No significant change. No evidence of acute intracranial hemorrhage or mass effect. Electronically signed by: Declan Souza MD (06/02/2017 3:59 PM) [id number] DICTATED AND SIGNED BY: DECLAN SOUZA MD DATE: 06/02/17 1554 CC: ABEL AVERY MD; [facility] E[facility] ~ Impressions: Chest pain End-stage renal disease on hemodialysis Monday Migraine headache Course & Med Decision Making Course & Med Decision Making Pertinent Labs and Imaging studies reviewed. (See chart for details) Patient presents with chest pain this been going on for several days in addition to a migraine type headache. CT head nonacute. Patient will need dialysis. She received 324 aspirin and her troponin is negative. At this point we'll transferring to [place] to the hospitalist and consult nephrology. Patient's agreeable plans in stable condition at this time. Patient accepted by . Princess Disclaimer Princess Disclaimer This electronic medical record was generated, in whole or in part, using a voice recognition dictation system. Departure Departure: Impression: Primary Impression: Chest pain Disposition: 05 XFER OTHER Condition: STABLE Referrals: KARON ELLIS (PCP) Problem Qualifiers Primary Impression: Chest pain Chest pain type: unspecified Qualified Codes: R07.9 - Chest pain, unspecified ABEL AVERY MD Jun 02, 2017 14:16
--- NOTE | 2017-06-02 14:42 | RAD ---
PORTABLE CHEST 1V Clinical Indication: CHEST PAIN Comparison: Two-view chest May 29, 2017. Findings: Left chest Port-A-Cath is stable. The cardiomediastinal silhouette is normal. Lungs are clear. There is no pneumothorax. No pleural effusion is appreciated. No acute bone abnormality. IMPRESSION: No acute cardiopulmonary process. Electronically signed by: Jin Conn MD (06/02/2017 2:39 PM) [id number]
[2017-06-02] MEDS ORDERED: NITROGLYCERIN SUBLINGUAL 0.4 MG BOTTLE OF 25. SL PRN (14:45)
[2017-06-02] MEDS: MORPHINE SULFATE 4 MG/ML DISP.SYRIN. IV PRN ×2 (14:56→15:30)
[2017-06-02 15:01] LABS: BASO % 1 % (0-3); EOS # 0.2 x10^3/uL (0.0-0.7); EOS % 3 % (0-3); HEMATOCRIT 27.6 % (36.0-47.0); HEMOGLOBIN 8.9 g/dL (12.0-15.5); LYMPH # 1.6 x10^3/uL (1.0-4.8); LYMPH % 25 % (24-48); MEAN CORPUSCULAR HEMOGLOBIN 32 pg (25-35); MEAN CORPUSCULAR HGB CONC 32 g/dL (31-37); MEAN CORPUSCULAR VOLUME 97 fL (79-100); MONO # 0.5 x10^3/uL (0.0-1.1); MONO % 7 % (0-9); NEUT # 4.3 x10^3uL (1.8-7.7); NEUT % 64 % (31-73); PLATELET COUNT 167 x10^3/uL (140-400); RED BLOOD COUNT 2.83 x10^6/uL (3.50-5.40); RED CELL DISTRIBUTION WIDTH 16.6 % (11.5-14.5); WHITE BLOOD COUNT 6.6 x10^3/uL (4.0-11.0)
[2017-06-02 15:19] LABS: ALBUMIN 2.4 g/dL (3.4-5.0); ALK PHOS 79 U/L (46-116); ALT (SGPT) 13 U/L (14-59); ANION GAP 12 (6-14); AST (SGOT) 18 U/L (15-37); BLOOD UREA NITROGEN 40 mg/dL (7-20); CALCIUM 8.2 mg/dL (8.5-10.1); CARBON DIOXIDE 26 mmol/L (21-32); CHLORIDE 101 mmol/L (98-107); CREATININE 9.1 mg/dL (0.6-1.0); DIRECT BILIRUBIN 0.1 mg/dL (0.0-0.2); GFR 5.5; GLUCOSE 78 mg/dL (70-99); LIPASE 55 U/L (73-393); POTASSIUM 4.9 mmol/L (3.5-5.1); SODIUM 139 mmol/L (136-145); TOTAL BILIRUBIN 0.5 mg/dL (0.2-1.0); TOTAL PROTEIN 6.2 g/dL (6.4-8.2)
--- NOTE | 2017-06-02 16:02 | RAD ---
CT of the head without contrast History:HEADACHE Technique: Standard noncontrast images are obtained. Exposure: One or more of the following individualized dose reduction techniques were utilized for this examination: 1. Automated exposure control 2. Adjustment of the mA and/or kV according to patient size 3. Use of iterative reconstruction technique. Comparison: September 18, 2016 Findings: Posterior fossa is unremarkable. No evidence of acute intracranial hemorrhage, mass effect, midline shift or abnormal extra-axial fluid collection. Gonzalez-white matter distinction is intact. Mild prominence of ventricles and sulci, compatible with atrophy, unchanged since the prior study. Visualized orbits are unremarkable. Visualized paranasal sinuses and mastoids are clear. No acute calvarial abnormality Impression: No significant change. No evidence of acute intracranial hemorrhage or mass effect. Electronically signed by: Declan Toribio MD (06/02/2017 3:59 PM) [facility]
--- NOTE | 2017-06-02 16:31 | EKG ---
[address] [address] Test Date: 2017-06-02 Test Time: 15:57:05 Pat Name: DINORAH VÁZQUEZ Department: Room: Gender: F Career Counselor: BRYANNA : 1965 Requested By: ABEL AVERY Order Number: [id number] Reading MD: Measurements Intervals [place] Rate: 73 P: 65 VA: 158 QRS: 11 QRSD: 80 T: 73 QT: 374 QTc: 416 Interpretive Statements SINUS RHYTHM ATRIAL PREMATURE COMPLEX(ES) QRS(T) CONTOUR ABNORMALITY CONSIDER ANTEROSEPTAL MYOCARDIAL DAMAGE POSSIBLY ABNORMAL ECG RI6.01 No previous ECG available for comparison
[2017-06-02 18:14] VITALS: BP 113/74
== END 2017-06-02 19:00 | disposition short-term general hospital (02) ==
LOC: ER 14:10
DX: R07.2 Precordial pain (principal); R19.7 Diarrhea, unspecified; G43.909 Migraine, unspecified, not intractable, without status migrainosus; I13.2 Hypertensive heart and chronic kidney disease with heart failure and with stage 5 chronic kidney disease, or end stage renal disease; N18.6 End stage renal disease; I50.9 Heart failure, unspecified; Z99.2 Dependence on renal dialysis; Z98.84 Bariatric surgery status; Z88.8 Allergy status to other drugs, medicaments and biological substances; Z88.6 Allergy status to analgesic agent; Z91.041 Radiographic dye allergy status; Z91.013 Allergy to seafood
CPT/HCPCS: 36415; 70450; 71045; 80048; 80076; 82553; 83690; 83735; 83880; 84443; 84484; 85025; 85610; 85730; 93005; 96374; 96376; 99285; J2270

== ENCOUNTER 2017-06-19 12:16 | Emergency (ER) | payer MEDICARE, OTHER ==
[~2017-06-19] VITALS: Ht 167.6 cm; Wt 91.2 kg
--- NOTE | 2017-06-19 13:15 | RAD ---
CHEST PA LATERAL History: CHEST PAIN. Shortness of breath. COMPARISON: June 02, 2017. FINDINGS: Left chest wall port identified and unchanged in position. No evidence of pneumothorax. No pleural effusion. No airspace disease or consolidation. IMPRESSION: No evidence of acute radiographic finding. Comparison: None. Findings: Cardiomediastinal silhouette is within normal limits. No focal airspace consolidation. No pneumothorax identified. No evidence of pleural effusion. Impression: No radiographic evidence of active airspace consolidation. Electronically signed by: Declan Toribio MD (06/19/2017 1:12 PM) [facility]
--- NOTE | 2017-06-19 13:19 | PHYS DOC ---
Past History Past Medical History: Hypertension, Other Additional Past Medical Histor: chronic renal failure on hemodialysis Past Surgical History: Appendectomy, Cholecystectomy, Other Smoking: Non-smoker Alcohol Use: None Drug Use: None Adult General Chief Complaint Chief Complaint: chest pain and cough [facility] HPI 51-year-old female patient with history of chronic renal failure on dialysis and frequent emergency room visits brought in by EMS because of chest pain and cough. Patient complaining of substernal constant and sharp pain without radiation for the last 4 days associated with shortness of breath and dizziness and palpitation that getting worse with activity. Patient complaining of nonproductive cough and shortness of breath and subjective fever. Patient had dialysis 3 days ago. Review of Systems Review of Systems Constitutional: Reports subjective fever Eyes: Denies change in visual acuity, redness, or eye pain [] HENT: Denies nasal congestion or sore throat [] Respiratory: Reports cough and shortness of breath[] Cardiovascular: No additional information not addressed in HPI [] GI: Denies abdominal pain, nausea, vomiting, bloody stools or diarrhea [] : Denies dysuria or hematuria [] Musculoskeletal: Denies back pain or joint pain [] Integument: Denies rash or skin lesions [] Neurologic: Denies headache, focal weakness or sensory changes [] Endocrine: Denies polyuria or polydipsia [] All other systems were reviewed and found to be within normal limits, except as documented in this note. Current Medications Current Medications Current Medications Medications (Trade) Dose Ordered Sig/Vitaliy Start Time Stop Time Status Last Admin Dose Admin Albuterol/ Ipratropium (Duoneb) 3 ml 1X ONCE 06/19/17 13:00 06/19/17 13:01 DC Allergies Allergies Allergies Coded Allergies Type Severity Reaction Last Updated Verified Iodinated Contrast- Oral and IV Dye Allergy Severe 08/03/14 Yes shellfish derived Allergy Intermediate 08/03/14 Yes caffeine Allergy Mild due to kidney transplant 08/03/14 Yes ibuprofen Allergy Mild 08/03/14 Yes red dye Allergy Mild due to kidney transplant 08/03/14 Yes I S O L A T I O N *CONTACT* Allergy Unknown 04/15/15 Yes Physical Exam Physical Exam Constitutional: Well developed, no acute distress, non-toxic appearance. [] HENT: Normocephalic, atraumatic, bilateral external ears normal, oropharynx moist, no oral exudates, nose normal. [] Eyes: PERRLA, EOMI, conjunctiva normal, no discharge. [] Neck: Normal range of motion, no tenderness, supple, no stridor. [] Cardiovascular:Heart rate regular rhythm, no murmur [] Lungs & Thorax: Bilateral breath sounds clear to auscultation [] Abdomen: Bowel sounds normal, soft, no tenderness, no masses, no pulsatile masses. [] Skin: Warm, dry, no erythema, no rash. [] Back: No tenderness, no CVA tenderness. [] Extremities: No tenderness, no cyanosis, no clubbing, ROM intact, no edema, right forearm AV fistula [] Neurologic: Alert and oriented X 3, normal motor function, normal sensory function, no focal deficits noted. [] Psychologic: Affect normal, judgement normal, mood normal. [] Current Patient Data Vital Signs Vital Signs Date Time Temp Pulse Resp B/P (MAP) Pulse Ox O2 Delivery O2 Flow Rate FiO2 06/19/17 12:28 99.3 86 22 95 Room Air EKG EKG EKG interpreted by me. EKG at 1225 showed sinus tachycardia at rate of 105, left sky axis deviation, no acute ST and T-wave abnormalities[] Radiology/Procedures Radiology/Procedures [] [place] [address] IMAGING REPORT Signed PATIENT: DINORAH VÁZQUEZ ACCOUNT: [id number] : 1965 LOCATION: ER AGE: 51 SEX: F EXAM STATUS: REG ER ORD. PHYSICIAN: SUNSHINE LIU MD REASON: shortness of breath PROCEDURE: CHEST PA & LATERAL CHEST PA LATERAL History: CHEST PAIN. Shortness of breath. COMPARISON: June 02, 2017. FINDINGS: Left chest wall port identified and unchanged in position. No evidence of pneumothorax. No pleural effusion. No airspace disease or consolidation. IMPRESSION: No evidence of acute radiographic finding. Comparison: None. Findings: Cardiomediastinal silhouette is within normal limits. No focal airspace consolidation. No pneumothorax identified. No evidence of pleural effusion. Impression: No radiographic evidence of active airspace consolidation. Electronically signed by: Declan Toribio MD (06/19/2017 1:12 PM) [facility] DICTATED AND SIGNED BY: DECLAN TORIBIO MD DATE: 06/19/17 2058 CC: SUNSHINE LIU MD; [facility] ELLIS ~ Course & Med Decision Making Course & Med Decision Making Pertinent Labs and Imaging studies reviewed. (See chart for details) Evaluation of patient in ER showed 51-year-old female patient with history of frequent emergency room visits and chronic renal failure on dialysis complaining of chest pain for 4 days as a constant pain. Patient was very comfortable but rated her pain 8/10 and stated the pain did not change with nitroglycerin. Patient had unremarkable cardiac enzymes and lactic acid and white count. Patient had chronic anemia and elevation of BUN/creatinine and BNP. Chest x-ray did not show infiltration. Patient instructed to follow-up with your dialysis appointment and primary care physician. Dragon Disclaimer Dragon Disclaimer This electronic medical record was generated, in whole or in part, using a voice recognition dictation system. Departure Departure: Impression: Primary Impression: Non-cardiac chest pain Additional Impressions: ESRD (end stage renal disease) Chronic anemia Cough Disposition: HOME, SELF-CARE (At 1451) Condition: STABLE Referrals: KARON ELLIS (PCP) Patient Instructions: Chest Pain (Nonspecific), Chronic Renal Insufficiency, Cough, Adult Additional Instructions: Follow-up with your dialysis appointment tomorrow Follow-up with your primary care physician in 3-5 days Return to ER if not getting better Scripts Benzonatate (TESSALON PERLE) 100 Mg Capsule 1 CAP PO TID, #21 CAP Prov: SUNSHINE LIU MD 06/19/17 Problem Qualifiers SUNSHINE LIU MD Jun 19, 2017 13:19
[2017-06-19 13:24] LABS: BASO % 1 % (0-3); EOS # 0.2 x10^3/uL (0.0-0.7); EOS % 4 % (0-3); HEMATOCRIT 25.3 % (36.0-47.0); HEMOGLOBIN 8.3 g/dL (12.0-15.5); LYMPH # 1.2 x10^3/uL (1.0-4.8); LYMPH % 21 % (24-48); MEAN CORPUSCULAR HEMOGLOBIN 32 pg (25-35); MEAN CORPUSCULAR HGB CONC 33 g/dL (31-37); MEAN CORPUSCULAR VOLUME 98 fL (79-100); MONO # 0.5 x10^3/uL (0.0-1.1); MONO % 9 % (0-9); NEUT # 3.9 x10^3uL (1.8-7.7); NEUT % 66 % (31-73); PLATELET COUNT 155 x10^3/uL (140-400); RED BLOOD COUNT 2.59 x10^6/uL (3.50-5.40); RED CELL DISTRIBUTION WIDTH 16.9 % (11.5-14.5); WHITE BLOOD COUNT 5.9 x10^3/uL (4.0-11.0)
[2017-06-19 13:39] LABS: INFLUENZA A PATIENT NEGATIVE (NEGATIVE); INFLUENZA B PATIENT NEGATIVE (NEGATIVE)
[2017-06-19 13:45] LABS: ALBUMIN 2.4 g/dL (3.4-5.0); ALBUMIN/GLOBULIN RATIO 0.6 (1.0-1.7); CALCIUM 8.1 mg/dL (8.5-10.1); CREATININE 9.5 mg/dL (0.6-1.0); GFR 5.2; POTASSIUM 5.1 mmol/L (3.5-5.1); TOTAL BILIRUBIN 0.3 mg/dL (0.2-1.0)
[2017-06-19] MEDS: NITROGLYCERIN SUBLINGUAL 0.4 MG BOTTLE OF 25. SL ONE (13:56)
[2017-06-19] MEDS: ASPIRIN 81 MG TAB.CHEW PO ONE (13:57)
[2017-06-19] MEDS: IPRATRPIUM/ALBUTEROL 0.5/2.5MG 3 ML NEBU. NEB ONE (13:59)
[2017-06-19 14:13] LABS: TOTAL PROTEIN 6.1 g/dL (6.4-8.2)
[2017-06-19] MEDS ORDERED: BENZ100C PO (14:52)
[2017-06-19 15:05] VITALS: BP 149/88
== END 2017-06-19 15:05 | disposition home or self-care (01) ==
LOC: ER 12:16
DX: R07.89 Other chest pain (principal); I12.0 Hypertensive chronic kidney disease with stage 5 chronic kidney disease or end stage renal disease; N18.6 End stage renal disease; D64.89 Other specified anemias; Z99.2 Dependence on renal dialysis; Z88.8 Allergy status to other drugs, medicaments and biological substances; Z88.6 Allergy status to analgesic agent; Z91.041 Radiographic dye allergy status; Z91.013 Allergy to seafood
CPT/HCPCS: 36415; 71046; 80053; 83605; 83880; 84484; 85025; 87040; 87804; 94640; 99285; J7620

== ENCOUNTER 2017-06-20 09:19 | Emergency (ER) | payer MEDICARE, OTHER ==
[~2017-06-20] VITALS: Ht 167.6 cm; Wt 91.6 kg
[~2017-06-20 09:19] MED LIST changes: +BENZ100C PO
--- NOTE | 2017-06-20 09:30 | PHYS DOC ---
Past History Past Medical History: Hypertension, Other Additional Past Medical Histor: chronic renal failure on hemodialysis Past Surgical History: Appendectomy, Cholecystectomy, Other Smoking: Non-smoker Alcohol Use: None Drug Use: None Adult General Chief Complaint Chief Complaint: Head injury HPI HPI 51-year-old female patient with history of chronic renal failure on dialysis and frequent emergency room visits brought in by EMS because of fall and head injury. Patient states she was walking outside and slipped on ice and landed on back of her head without loss of consciousness. Patient rated her pain 8/10 and denies focal neuro deficit, nausea and vomiting, blurred vision, chest pain, shortness of breath. Patient was seen in this emergency room yesterday because of chest pain and instructed to follow-up with her hemodialysis as scheduled for today. Patient states she forgot about dialysis this morning and she did not wake up to go to her scheduled dialysis. Review of Systems Review of Systems Constitutional: Denies fever or chills [] Eyes: Denies change in visual acuity, redness, or eye pain [] HENT: Denies nasal congestion or sore throat [] Respiratory: Denies cough or shortness of breath [] Cardiovascular: No additional information not addressed in HPI [] GI: Denies abdominal pain, nausea, vomiting, bloody stools or diarrhea [] : Denies dysuria or hematuria [] Musculoskeletal: Denies back pain or joint pain [] Integument: Denies rash or skin lesions [] Neurologic: Denies headache, focal weakness or sensory changes [] Endocrine: Denies polyuria or polydipsia [] All other systems were reviewed and found to be within normal limits, except as documented in this note. Allergies Allergies Allergies Coded Allergies Type Severity Reaction Last Updated Verified Iodinated Contrast- Oral and IV Dye Allergy Severe 08/03/14 Yes shellfish derived Allergy Intermediate 08/03/14 Yes caffeine Allergy Mild due to kidney transplant 08/03/14 Yes ibuprofen Allergy Mild 08/03/14 Yes red dye Allergy Mild due to kidney transplant 08/03/14 Yes I S O L A T I O N *CONTACT* Allergy Unknown 04/15/15 Yes Physical Exam Physical Exam Constitutional: Well developed, well nourished, no acute distress, non-toxic appearance. [] HENT: Normocephalic, atraumatic, bilateral external ears normal, oropharynx moist, no oral exudates, nose normal. [] Eyes: PERRLA, EOMI, conjunctiva normal, no discharge. [] Neck: Normal range of motion, no tenderness, supple, no stridor. [] Cardiovascular:Heart rate regular rhythm, no murmur [] Lungs & Thorax: Bilateral breath sounds clear to auscultation [] Abdomen: Bowel sounds normal, soft, no tenderness, no masses, no pulsatile masses. [] Skin: Warm, dry, no erythema, no rash. [] Back: No tenderness, no CVA tenderness. [] Extremities: No tenderness, no cyanosis, no clubbing, ROM intact, no edema. [] Neurologic: Alert and oriented X 3, normal motor function, normal sensory function, no focal deficits noted. [] Psychologic: Affect normal, judgement normal, mood normal. [] EKG EKG EKG interpreted by me. EKG at 1133 showed normal sinus rhythm at rate of 83, left sky axis deviation, no acute ST and T wave abnormality[] Radiology/Procedures Radiology/Procedures [] Head Comparison with June 02, 2017. The patient is asymmetrically positioned within the scanner. Posterior fossa appears unremarkable. No acute intracranial hemorrhage or extra-axial fluid collection. Mild ventricular and sulcal enlargement are again identified. Partially included sinuses are clear No evidence of depressed skull fracture although a point of impact is not known. Partially visualized orbits are unremarkable. IMPRESSION: No acute intracranial hemorrhage or mass effect. Cervical spine Ring of C1 is intact Cervico-occipital junction is intact And no acute fracture or destructive bone lesion. Vertebral body height is maintained. No significant subluxation. No evidence of perched or locked facet joint. Straightening of the cervical lordosis, can indicate muscle spasm or patient positioning. No prevertebral soft tissue swelling or hematoma. Mild degenerative spurring is identified at the upper thoracic spine. Minimal anterior subluxation of T1 on T2, and T2 on T3, about 1 mm may be degenerative. The right lobe of the thyroid appears enlarged and heterogeneous. There is a dominant nodule measuring at least 16 mm. Lung apices are clear., IMPRESSION: 1. No acute fracture. Right thyroid lesion. Outpatient ultrasound could further evaluate. Electronically signed by: Cheryl Toribio MD (06/20/2017 10:15 AM) [facility] DICTATED AND SIGNED BY: CHERYL TORIBIO MD DATE: 06/20/17 1006 CC: SUNSHINE LIU MD; KARON ELLIS ~ Course & Med Decision Making Course & Med Decision Making Pertinent Labs and Imaging studies reviewed. (See chart for details) []Volitional patient in ER showed 50-year-old female patient with frequent emergency room visits and history of chronic renal failure on hemodialysis brought in by EMS because of a fall and head injury. Patient had unremarkable physical exam and CT of head and neck. Patient missed her dialysis today and arrangements for 11 AM hemodialysis was made but patient did not have transportation and we were not able to provide transportation for 11 AM. There was opening for tomorrow afternoon for dialysis. Patient had potassium of 6.0 and decided to admit patient to [facility] for dialysis today. Dr. Corrales was informed at 1120 and agreed to admitting the patient at [facility]. She had hemoglobin of 7.0 and yesterday her hemoglobin was 8.3 that looks she has dilutional anemia. Patient informed about plan of care. Dragon Disclaimer Dragon Disclaimer This electronic medical record was generated, in whole or in part, using a voice recognition dictation system. Departure Departure: Impression: Primary Impression: Head injury Additional Impressions: Hyperkalemia Noncompliance with renal dialysis Chronic anemia Disposition: 02 XFER SHT-TRM HOSP (to [facility] at 1120) Condition: STABLE Referrals: KARON ELLIS (PCP) Problem Qualifiers SUNSHINE LIU MD Jun 20, 2017 09:30
--- NOTE | 2017-06-20 10:18 | RAD ---
CT HEAD AND CERVICAL SPINE WO Indication: Patient fell this morning. Exposure: One or more of the following individualized dose reduction techniques were utilized for this examination: 1. Automated exposure control 2. Adjustment of the mA and/or kV according to patient size 3. Use of iterative reconstruction technique. Contrast: None Head Comparison with June 02, 2017. The patient is asymmetrically positioned within the scanner. Posterior fossa appears unremarkable. No acute intracranial hemorrhage or extra-axial fluid collection. Mild ventricular and sulcal enlargement are again identified. Partially included sinuses are clear No evidence of depressed skull fracture although a point of impact is not known. Partially visualized orbits are unremarkable. IMPRESSION: No acute intracranial hemorrhage or mass effect. Cervical spine Ring of C1 is intact Cervico-occipital junction is intact And no acute fracture or destructive bone lesion. Vertebral body height is maintained. No significant subluxation. No evidence of perched or locked facet joint. Straightening of the cervical lordosis, can indicate muscle spasm or patient positioning. No prevertebral soft tissue swelling or hematoma. Mild degenerative spurring is identified at the upper thoracic spine. Minimal anterior subluxation of T1 on T2, and T2 on T3, about 1 mm may be degenerative. The right lobe of the thyroid appears enlarged and heterogeneous. There is a dominant nodule measuring at least 16 mm. Lung apices are clear., IMPRESSION: 1. No acute fracture. Right thyroid lesion. Outpatient ultrasound could further evaluate. Electronically signed by: Declan Toribio MD (06/20/2017 10:15 AM) [facility]
[2017-06-20] MEDS: ACETAMINOPHEN 500 MG TABLET PO ONE (10:25)
[2017-06-20 10:51] LABS: CALCIUM 7.5 mg/dL (8.5-10.1); CREATININE 10.7 mg/dL (0.6-1.0); GFR 4.6
[2017-06-20 11:11] LABS: BASO % 1 % (0-3); EOS # 0.1 x10^3/uL (0.0-0.7); EOS % 1 % (0-3); HEMATOCRIT 21.6 % (36.0-47.0); LYMPH # 0.9 x10^3/uL (1.0-4.8); LYMPH % 12 % (24-48); MEAN CORPUSCULAR HEMOGLOBIN 32 pg (25-35); MEAN CORPUSCULAR HGB CONC 33 g/dL (31-37); MEAN CORPUSCULAR VOLUME 99 fL (79-100); MONO # 0.5 x10^3/uL (0.0-1.1); MONO % 6 % (0-9); NEUT # 5.9 x10^3uL (1.8-7.7); NEUT % 80 % (31-73); PLATELET COUNT 139 x10^3/uL (140-400); RED BLOOD COUNT 2.19 x10^6/uL (3.50-5.40); WHITE BLOOD COUNT 7.4 x10^3/uL (4.0-11.0)
[2017-06-20] MEDS: ALBUTEROL SULFATE 2.5 MG/3 ML NEBU. CONT NEB ONE (11:26)
--- NOTE | 2017-06-20 11:51 | EKG ---
[address] [address] Test Date: 2017-06-20 Test Time: 11:33:45 Pat Name: DINORAH VÁZQUEZ Department: Room: Gender: F Associate Professor Of History: BRYANNA : 1965 Requested By: SUNSHINE LIU Order Number: [id number] Reading MD: Measurements Intervals [place] Rate: 83 P: 0 NM: 172 QRS: -6 QRSD: 78 T: 53 QT: 364 QTc: 428 Interpretive Statements SINUS RHYTHM LEFTWARD AXIS NO SPECIFIC ECG ABNORMALITIES RI6.01 No previous ECG available for comparison
[2017-06-20] MEDS: HYDROcodone/APAP 5/325MG 1 TAB TABLET PO ONE (12:09)
[2017-06-20 13:20] VITALS: BP 141/89
== END 2017-06-20 14:00 | disposition short-term general hospital (02) ==
LOC: ER 09:19
DX: S09.90XA Unspecified injury of head, initial encounter (principal); E87.5 Hyperkalemia; D64.9 Anemia, unspecified; I12.0 Hypertensive chronic kidney disease with stage 5 chronic kidney disease or end stage renal disease; N18.6 End stage renal disease; Z99.2 Dependence on renal dialysis; Z91.15 Patient's noncompliance with renal dialysis; Z88.8 Allergy status to other drugs, medicaments and biological substances; Z88.6 Allergy status to analgesic agent; Z91.041 Radiographic dye allergy status; Z91.013 Allergy to seafood; W00.0XXA Fall on same level due to ice and snow, initial encounter; Y93.01 Activity, walking, marching and hiking; Y99.8 Other external cause status; Y92.89 Other specified places as the place of occurrence of the external cause
CPT/HCPCS: 36415; 70450; 72125; 80048; 85025; 93005; 94640; 99285; J7613

== ENCOUNTER 2017-07-02 10:46 | Emergency (ER) | payer MEDICARE, OTHER ==
[~2017-07-02] VITALS: Ht 167.6 cm; Wt 113.4 kg
[2017-07-02 11:50] LABS: BASO % 1 % (0-3); EOS # 0.1 x10^3/uL (0.0-0.7); EOS % 2 % (0-3); HEMATOCRIT 23.9 % (36.0-47.0); HEMOGLOBIN 7.9 g/dL (12.0-15.5); LYMPH # 1.4 x10^3/uL (1.0-4.8); LYMPH % 26 % (24-48); MEAN CORPUSCULAR HEMOGLOBIN 32 pg (25-35); MEAN CORPUSCULAR HGB CONC 33 g/dL (31-37); MEAN CORPUSCULAR VOLUME 96 fL (79-100); MONO # 0.4 x10^3/uL (0.0-1.1); MONO % 6 % (0-9); NEUT # 3.7 x10^3uL (1.8-7.7); NEUT % 66 % (31-73); PLATELET COUNT 137 x10^3/uL (140-400); RED BLOOD COUNT 2.48 x10^6/uL (3.50-5.40); RED CELL DISTRIBUTION WIDTH 15.5 % (11.5-14.5); WHITE BLOOD COUNT 5.6 x10^3/uL (4.0-11.0)
[2017-07-02] MEDS ORDERED: HYDROcodone/APAP 5/325MG 1 TAB TABLET PO ONE (12:00)
[2017-07-02 12:12] LABS: ALBUMIN 2.3 g/dL (3.4-5.0); ALBUMIN/GLOBULIN RATIO 0.7 (1.0-1.7); CALCIUM 8.2 mg/dL (8.5-10.1); CREATININE 6.7 mg/dL (0.6-1.0); GFR 7.8; POTASSIUM 5.5 mmol/L (3.5-5.1); TOTAL BILIRUBIN 0.3 mg/dL (0.2-1.0); TOTAL PROTEIN 5.7 g/dL (6.4-8.2)
--- NOTE | 2017-07-02 12:20 | PHYS DOC ---
Past History Past Medical History: Renal Failure Additional Past Medical Histor: chronic renal failure on hemodialysis Past Surgical History: Cholecystectomy, Hysterectomy, Other Smoking: Non-smoker Alcohol Use: None Drug Use: None Adult General Chief Complaint Chief Complaint: CHEST PAIN HPI HPI 51-year-old female patient with history of renal failure on hemodialysis and frequent emergency room visits brought in by EMS because of chest pain. Patient obtaining of sudden onset of substernal chest pain 10 AM as a constant pain with radiation to her back with shortness of breath without nausea, vomiting, palpitation, focal neuro deficit, fever and chills, cough and congestion. Patient rated her pain 8/10 and states nothing changing her pain. Patient treated with 324 mg of aspirin by EMS without change of her pain. Patient has history of hypertension without diabetes, dyslipidemia, smoking, quit artery disease, family history of coronary artery disease. Patient states she had extraocular dialysis 2 days ago and missed her dialysis yesterday. Patient has had frequent emergency room after missing his dialysis with complaining of chest pain. Review of Systems Review of Systems Constitutional: Denies fever or chills [] Eyes: Denies change in visual acuity, redness, or eye pain [] HENT: Denies nasal congestion or sore throat [] Respiratory: Reports shortness of breath without cough Cardiovascular: No additional information not addressed in HPI [] GI: Denies abdominal pain, nausea, vomiting, bloody stools or diarrhea [] : Denies dysuria or hematuria [] Musculoskeletal: Denies back pain or joint pain [] Integument: Denies rash or skin lesions [] Neurologic: Denies headache, focal weakness or sensory changes [] Endocrine: Denies polyuria or polydipsia [] All other systems were reviewed and found to be within normal limits, except as documented in this note. Current Medications Current Medications Current Medications Medications (Trade) Dose Ordered Sig/Vitaliy Start Time Stop Time Status Last Admin Dose Admin Acetaminophen/ Hydrocodone Bitart (Lortab 5/325) 1 tab 1X ONCE 07/02/17 12:00 07/02/17 12:01 DC 07/02/17 11:44 1 TAB Allergies Allergies Allergies Coded Allergies Type Severity Reaction Last Updated Verified Iodinated Contrast- Oral and IV Dye Allergy Severe 08/03/14 Yes shellfish derived Allergy Intermediate 08/03/14 Yes caffeine Allergy Mild due to kidney transplant 08/03/14 Yes ibuprofen Allergy Mild 08/03/14 Yes red dye Allergy Mild due to kidney transplant 08/03/14 Yes I S O L A T I O N *CONTACT* Allergy Unknown 04/15/15 Yes Physical Exam Physical Exam Constitutional: Well nourished, no acute distress, non-toxic appearance. [] HENT: Normocephalic, atraumatic Eyes: PERRLA, EOMI, conjunctiva normal, no discharge. [] Neck: Normal range of motion, no tenderness, supple, no stridor. [] Cardiovascular:Heart rate regular rhythm, no murmur, substernal reproducible chest wall pain [] Lungs & Thorax: Bilateral breath sounds clear to auscultation [] Abdomen: Bowel sounds normal, soft, no tenderness, no masses, no pulsatile masses. [] Skin: Warm, dry, no erythema, no rash. [] Back: No tenderness, no CVA tenderness. [] Extremities: No tenderness, no cyanosis, no clubbing, ROM intact, bilateral lower extremity 1+ edema, right upper extremity AV fistula in place with good thrill Neurologic: Alert and oriented X 3, normal motor function, normal sensory function, no focal deficits noted. [] Psychologic: Affect normal, judgement normal, mood normal. [] Current Patient Data Vital Signs Vital Signs Date Time Temp Pulse Resp B/P (MAP) Pulse Ox O2 Delivery O2 Flow Rate FiO2 07/02/17 11:44 18 98 Room Air 07/02/17 11:23 98.1 80 Lab Results Laboratory Tests Test 07/02/17 11:39 White Blood Count 5.6 x10^3/uL (4.0-11.0) Red Blood Count 2.48 x10^6/uL (3.50-5.40) L Hemoglobin 7.9 g/dL (12.0-15.5) L Hematocrit 23.9 % (36.0-47.0) L Mean Corpuscular Volume 96 fL (79-100) Mean Corpuscular Hemoglobin 32 pg (25-35) Mean Corpuscular Hemoglobin Concent 33 g/dL (31-37) Red Cell Distribution Width 15.5 % (11.5-14.5) H Platelet Count 137 x10^3/uL (140-400) L Neutrophils (%) (Auto) 66 % (31-73) Lymphocytes (%) (Auto) 26 % (24-48) Monocytes (%) (Auto) 6 % (0-9) Eosinophils (%) (Auto) 2 % (0-3) Basophils (%) (Auto) 1 % (0-3) Neutrophils # (Auto) 3.7 x10^3uL (1.8-7.7) Lymphocytes # (Auto) 1.4 x10^3/uL (1.0-4.8) Monocytes # (Auto) 0.4 x10^3/uL (0.0-1.1) Eosinophils # (Auto) 0.1 x10^3/uL (0.0-0.7) Basophils # (Auto) 0.0 x10^3/uL (0.0-0.2) EKG EKG EKG interpreted by me. EKG at 1232 showed sinus rhythm at rate of 68, left axis deviation, left anterior fascicular block, incomplete right bundle branch block , T wave abnormality in lateral leads, prolonged QT, no acute ST and T wave abnormality[] Radiology/Procedures Radiology/Procedures [] [place] [address] IMAGING REPORT Signed PATIENT: DINORAH VÁZQUEZ ACCOUNT: [id number] : 1965 LOCATION: ER AGE: 51 SEX: F EXAM STATUS: REG ER ORD. PHYSICIAN: SUNSHINE LIU MD REASON: chest pain PROCEDURE: PORTABLE CHEST 1V EXAM: Chest one view. HISTORY: Chest pain. COMPARISON: 06/19/2017. FINDINGS: A frontal view of the chest is obtained. A left-sided port catheter has its tip in the superior cavoatrial junction. There are no confluent infiltrates. There is no pneumothorax or pleural effusion. The heart is not enlarged. IMPRESSION: 1. No confluent infiltrates. DICTATED AND SIGNED BY: COREY LOPEZ MD DATE: 07/02/17 1219 CC: SUNSHINE LIU MD; KARON ELLIS ~ Course & Med Decision Making Course & Med Decision Making Pertinent Labs and Imaging studies reviewed. (See chart for details) Evaluation of patient in ER showed 51-year-old male patient with chronic renal failure and frequent emergency room visits brought in by EMS because of chest pain. Patient had unremarkable physical exam and didn't seem in distress even rated her pain 10 over 10. EKG did not show acute abnormality. Potassium was 5.5 scheduled dialysis 2 days from now. Plan to admit patient to [facility] diagnosis of hyperkalemia and arranging for emergency dialysis. Dr. Corrales accepted admission to [facility] at 1235. Dragon Disclaimer Dragon Disclaimer This electronic medical record was generated, in whole or in part, using a voice recognition dictation system. Departure Departure: Impression: Primary Impression: Hyperkalemia Additional Impressions: Missed dialysis Chest pain Chronic renal failure Chronic anemia Noncompliance with renal dialysis Disposition: 02 XFER SHT-TRM HOSP ([facility] at 1235) Admitting Physician: Peggy Corrales Condition: IMPROVED Referrals: KARON ELLIS (PCP) Problem Qualifiers SUNSHINE LIU MD Jul 02, 2017 12:20
--- NOTE | 2017-07-02 13:18 | EKG ---
[address] [address] Test Date: 2017-07-02 Test Time: 10:57:16 Pat Name: DINORAH VÁZQUEZ Department: Room: Gender: F Can Labeler: BRYANNA : 1965 Requested By: SUNSHINE LIU Order Number: [id number] Reading MD: Measurements Intervals [place] Rate: 80 P: 39 [place]: 166 QRS: -4 QRSD: 82 T: 54 QT: 354 QTc: 412 Interpretive Statements SINUS RHYTHM ATRIAL PREMATURE COMPLEX(ES) LEFTWARD AXIS NO SPECIFIC ECG ABNORMALITIES RI6.01 No previous ECG available for comparison
[2017-07-02 14:28] VITALS: BP 163/72
[2017-07-02] MEDS ORDERED: ACETAMINOPHEN 325 MG TABLET PO ONE (16:15)
== END 2017-07-02 16:34 | disposition short-term general hospital (02) ==
LOC: ER 10:46
DX: E87.5 Hyperkalemia (principal); R07.2 Precordial pain; N18.6 End stage renal disease; Z99.2 Dependence on renal dialysis; D64.9 Anemia, unspecified; Z91.15 Patient's noncompliance with renal dialysis; I12.0 Hypertensive chronic kidney disease with stage 5 chronic kidney disease or end stage renal disease; Z88.8 Allergy status to other drugs, medicaments and biological substances; Z88.6 Allergy status to analgesic agent; Z91.041 Radiographic dye allergy status; Z91.013 Allergy to seafood
CPT/HCPCS: 36415; 71045; 80053; 82553; 83880; 84484; 85025; 93005; 99285-25

== ENCOUNTER → 2017-07-14 | Outpatient (CLI) | payer MEDICARE, OTHER ==
[2017-07-02 14:28] VITALS: BP 163/72
--- NOTE | 2017-07-14 12:07 | RAD ---
DATE: 07/14/2017 EXAM: DIGITAL DIAGNOSTIC BILATERAL, BREAST RIGHT HISTORY: Right breast lump COMPARISON: 07/11/2016 This study was interpreted with the benefit of Computerized Aided Detection (CAD). The breast parenchyma shows scattered fibroglandular densities. Breast parenchyma level B. FINDINGS: A BB was placed on the skin surface over the area of palpable concern at approximately the 12:00 location. This area of concern lies more medially than the area of concern detailed on the 07/11/2016 exam. No new or enlarging breast densities are seen. No mass is identified in the region of the BB. Benign type calcifications are present. No suspicious microcalcifications have developed. Numerous moderate sized lymph nodes in the axillary regions appear unchanged. Right breast ultrasound, 07/14/2017: A targeted ultrasound exam of the right breast was performed in the area of palpable concern centered at the 12:00 location. There are mildly heterogeneous slightly hypoechoic subcutaneous tissues in this region. This process measures approximate 6 cm in greatest diameter. It is it is of similar echogenicity to the adjacent subcutaneous fat. Correlation with the mammogram showed only fatty type densities in this region. No suspicious mass or fluid collection is seen sonographically. The palpable abnormality is probably a lipoma. IMPRESSION: 1. No mammographic evidence of malignancy in either breast. 2. The area palpable concern appears to correspond to fatty tissues and is most likely a lipoma. Continued clinical surveillance is suggested. BI-RADS CATEGORY: 2 BENIGN FINDING(S) RECOMMENDED FOLLOW-UP: 12M 12 MONTH FOLLOW-UP PQRS compliance statement: Patient information was entered into a reminder system with a target due date for the next mammogram. Mammography is a sensitive method for finding small breast cancers, but it does not detect them all and is not a substitute for careful clinical examination. A negative mammogram does not negate a clinically suspicious finding and should not result in delay in biopsying a clinically suspicious abnormality. "Our facility is accredited by the [employer] Mammography Program."
== END | disposition home or self-care (01) ==
LOC: MAMMO 10:03
PROVIDERS: ATTEND Internal Medicine
DX: R92.8 Other abnormal and inconclusive findings on diagnostic imaging of breast (principal)
CPT/HCPCS: 76641; 77066

== ENCOUNTER → 2017-07-19 | Outpatient (CLI) | payer MEDICARE, OTHER ==
[2017-07-02 14:28] VITALS: BP 163/72
[2017-07-19 16:35] LABS: BASO % 1 % (0-3); EOS # 0.2 x10^3/uL (0.0-0.7); EOS % 2 % (0-3); HEMATOCRIT 24.9 % (36.0-47.0); HEMOGLOBIN 8.2 g/dL (12.0-15.5); LYMPH # 2.2 x10^3/uL (1.0-4.8); LYMPH % 34 % (24-48); MEAN CORPUSCULAR HEMOGLOBIN 32 pg (25-35); MEAN CORPUSCULAR HGB CONC 33 g/dL (31-37); MEAN CORPUSCULAR VOLUME 96 fL (79-100); MONO # 0.6 x10^3/uL (0.0-1.1); MONO % 9 % (0-9); NEUT # 3.6 x10^3uL (1.8-7.7); NEUT % 55 % (31-73); PLATELET COUNT 151 x10^3/uL (140-400); RED BLOOD COUNT 2.59 x10^6/uL (3.50-5.40); RED CELL DISTRIBUTION WIDTH 16.1 % (11.5-14.5); WHITE BLOOD COUNT 6.6 x10^3/uL (4.0-11.0)
== END | disposition home or self-care (01) ==
LOC: PMG 15:25
PROVIDERS: ATTEND Physician Assistant Medical
DX: D51.8 Other vitamin B12 deficiency anemias (principal); J02.9 Acute pharyngitis, unspecified; I12.0 Hypertensive chronic kidney disease with stage 5 chronic kidney disease or end stage renal disease; N18.5 Chronic kidney disease, stage 5; Z87.442 Personal history of urinary calculi
CPT/HCPCS: 36415; 85025

== ENCOUNTER 2017-07-25 03:12 | Emergency (ER) | payer MEDICARE, OTHER ==
[~2017-07-25] VITALS: Ht 167.6 cm; Wt 95.8 kg
--- NOTE | 2017-07-25 03:37 | ED.ADGEN ---
Past History Past Medical History: Anxiety, CAD, GERD, Hypertension, Renal Failure Additional Past Medical Histor: chronic renal failure on hemodialysis Past Surgical History: Cholecystectomy, Hysterectomy, Other Smoking: Non-smoker Alcohol Use: None Drug Use: None Adult General Chief Complaint Chief Complaint "..I ve had chest pain. .... all day.. and my throat hurts every since they did .. that upper GI at [facility] the last time I was admitted..... You know I gotta have my dialysis this morning..." .. " My chest pain is 8/10.. you need to give me something for it..." HPI HPI Patient is a 51 year old female who presents with above hx and complaints of chest pain. Pt. states pain has been present all day. Nothing makes it better. Pt. does have some throat pain, but it has been present since EGD. Pt. has hx of polycystic kidney disease, hypertension, end-stage renal disease with dialysis on Tuesdays and Monday. Patient has a history of GERD , anxiety disorder, and noncompliance with medical regimen. Patient normally follows with cardiology at [facility], but also sees Dr. Edwards in [place]. Patient normally follows with Dr. Flores for Nephrology. Review of Systems Review of Systems Constitutional: Denies fever or chills [] Eyes: Denies change in visual acuity, redness, or eye pain [] HENT: Denies nasal congestion . Complaints of sore throat [] Respiratory: Complaints of shortness of breath [] Cardiovascular: No additional information not addressed in HPI [] GI: Denies abdominal pain, nausea, vomiting, bloody stools or diarrhea [] : Denies dysuria or hematuria [] Musculoskeletal: Denies back pain or joint pain [] Integument: Denies rash or skin lesions [] Neurologic: Denies headache, focal weakness or sensory changes [] Endocrine: Denies polyuria or polydipsia [] All other systems were reviewed and found to be within normal limits, except as documented in this note. Family History Family History Hypertension Current Medications Current Medications Current Medications Medications (Trade) Dose Ordered Sig/Vitaliy Start Time Stop Time Status Last Admin Dose Admin Aspirin (Children'S Aspirin) 81 mg 1X ONCE 07/25/17 04:00 07/25/17 04:01 DC 07/25/17 05:05 81 MG Morphine Sulfate (Morphine 10mg Syringe) 10 mg 1X ONCE 07/25/17 04:00 07/25/17 04:01 DC 07/25/17 05:05 10 MG Nitroglycerin (Nitro-Bid Oint) 1 inch 1X ONCE 07/25/17 04:00 07/25/17 04:01 DC 07/25/17 05:05 1 INCH Allergies Allergies Allergies Coded Allergies Type Severity Reaction Last Updated Verified Iodinated Contrast- Oral and IV Dye Allergy Severe 08/03/14 Yes shellfish derived Allergy Intermediate 08/03/14 Yes caffeine Allergy Mild due to kidney transplant 08/03/14 Yes ibuprofen Allergy Mild 08/03/14 Yes red dye Allergy Mild due to kidney transplant 08/03/14 Yes I S O L A T I O N *CONTACT* Allergy Unknown 04/15/15 Yes See nursing for home meds Physical Exam Physical Exam Constitutional: Moderately acute distress, non-toxic appearance. [] HENT: Normocephalic, atraumatic, bilateral external ears normal, oropharynx moist, no oral exudates, nose normal. [] Eyes: PERRLA, EOMI, conjunctiva normal, no discharge. Retinopathy. Neck: Normal range of motion, no tenderness, supple, no stridor. [] JVD Cardiovascular:Heart rate regular rhythm, no murmur []PMI to Lt. Lungs & Thorax: Bilateral breath sounds equal apex, with crackles bilateral bases on auscultation [] Port Lt. Abdomen: Bowel sounds normal, soft, no tenderness, no masses, no pulsatile masses. [] Old surgery scars. Skin: Warm, dry, no erythema, no rash. [] Back: No tenderness, no CVA tenderness. [] Extremities: No tenderness, no cyanosis, no clubbing, ROM intact, no edema. [] Rt. AV graft has good thrill. Neurologic: Alert and oriented X 3,No gross motor or sensory function deficits from her baseline. Psychologic: Affect flat, judgement poor insight, mood depressed. Current Patient Data Vital Signs Vital Signs Date Time Temp Pulse Resp B/P (MAP) Pulse Ox O2 Delivery O2 Flow Rate FiO2 07/25/17 05:05 74 136/83 07/25/17 03:12 98.5 16 100 Room Air Lab Results Laboratory Tests Test 07/25/17 03:59 07/25/17 04:09 07/25/17 04:50 White Blood Count 4.8 x10^3/uL (4.0-11.0) Red Blood Count 2.68 x10^6/uL (3.50-5.40) L Hemoglobin 8.6 g/dL (12.0-15.5) L Hematocrit 25.8 % (36.0-47.0) L Mean Corpuscular Volume 96 fL (79-100) Mean Corpuscular Hemoglobin 32 pg (25-35) Mean Corpuscular Hemoglobin Concent 33 g/dL (31-37) Red Cell Distribution Width 17.1 % (11.5-14.5) H Platelet Count 144 x10^3/uL (140-400) Neutrophils (%) (Auto) 66 % (31-73) Lymphocytes (%) (Auto) 26 % (24-48) Monocytes (%) (Auto) 6 % (0-9) Eosinophils (%) (Auto) 2 % (0-3) Basophils (%) (Auto) 1 % (0-3) Neutrophils # (Auto) 3.1 x10^3uL (1.8-7.7) Lymphocytes # (Auto) 1.3 x10^3/uL (1.0-4.8) Monocytes # (Auto) 0.3 x10^3/uL (0.0-1.1) Eosinophils # (Auto) 0.1 x10^3/uL (0.0-0.7) Basophils # (Auto) 0.0 x10^3/uL (0.0-0.2) POC Hemoglobin 7.8 gm/dL POC Hematocrit 23 % POC Sodium 137 mmol/L (135-145) POC Potassium 4.4 mmol/L (3.5-5.0) POC Chloride 103 mmol/L (98-110) POC Total CO2 20 mmol/L (23-32) L Anion Gap 19 mmol/L (6-14) H POC Blood Urea Nitrogen 86 mg/dL (8-26) H POC Creatinine 12.1 mg/dL (0.5-1.4) H Glucose Level 71 mg/dL (60-99) POC Ionized Calcium (Annita) 1.04 mmol/L (1.13-1.32) L POC Troponin I 0.01 ng/ml (<0.08) EKG EKG My interpretation of EKG shows a sinus rate of 85 bpm. There is some leftward axis. There is some nonspecific anterior lateral changes but no findings acute STEMI with contralateral changes. Somewhat low voltage throughout.[] Radiology/Procedures Radiology/Procedures My interpretation of chest x-ray shows[] no acute cardiopulmonary changes from prior films. Does have some increased cephalization. Does have a port left lung field. Does have cardiomegaly. Course & Med Decision Making Course & Med Decision Making Pertinent Labs and Imaging studies reviewed. (See chart for details). Discussed presentation, testing and treatment plan with Dr. Corrales. Recommended transfer to [facility]- he will remain primary. Consult to Dr. Flores or HD. Cardiology - for CP eval. Still awaiting transport- [facility] 565 at 0600 [] Final Impression Final Impression 1. Chest pain complaints 2. Hypertension 3, History coronary artery disease 4. Polycystic renal disease 5. End-stage renal disease with hemodialysis Monday 6. History GERD 7. Anemia- Hgb 8.6 [] Problems: Dragon Disclaimer Dragon Disclaimer This electronic medical record was generated, in whole or in part, using a voice recognition dictation system. JOSÉ YOUNG MD July 25, 2017 03:37
--- NOTE | 2017-07-25 03:45 | EKG ---
[address] [address] Test Date: 2017-07-25 Test Time: 03:22:26 Pat Name: DINORAH VÁZQUEZ Department: Room: Gender: F Environmental Health And Safety Leader: ALLIE : 1965 Requested By: JOSÉ YOUNG Order Number: [id number] Reading MD: Measurements Intervals [place] Rate: 85 P: 29 PA: 180 QRS: -8 QRSD: 86 T: 26 QT: 366 QTc: 436 Interpretive Statements SINUS RHYTHM LEFTWARD AXIS QRS(T) CONTOUR ABNORMALITY CONSIDER ANTEROLATERAL MYOCARDIAL DAMAGE POSSIBLY ABNORMAL ECG RI6.01 No previous ECG available for comparison
[2017-07-25] MEDS ORDERED: NITROGLYCERIN OINT 1 GM PACKET. TP ONE (04:00)
[2017-07-25] MEDS ORDERED: ASPIRIN 81 MG TAB.CHEW PO ONE (04:00)
[2017-07-25] MEDS ORDERED: MORPHINE SULFATE 10 MG/ML SYRINGE. SQ ONE (04:00)
[2017-07-25 04:48] LABS: BASO % 1 % (0-3); EOS # 0.1 x10^3/uL (0.0-0.7); EOS % 2 % (0-3); HEMATOCRIT 25.8 % (36.0-47.0); HEMOGLOBIN 8.6 g/dL (12.0-15.5); LYMPH # 1.3 x10^3/uL (1.0-4.8); LYMPH % 26 % (24-48); MEAN CORPUSCULAR HEMOGLOBIN 32 pg (25-35); MEAN CORPUSCULAR HGB CONC 33 g/dL (31-37); MEAN CORPUSCULAR VOLUME 96 fL (79-100); MONO # 0.3 x10^3/uL (0.0-1.1); MONO % 6 % (0-9); NEUT # 3.1 x10^3uL (1.8-7.7); NEUT % 66 % (31-73); PLATELET COUNT 144 x10^3/uL (140-400); RED BLOOD COUNT 2.68 x10^6/uL (3.50-5.40); RED CELL DISTRIBUTION WIDTH 17.1 % (11.5-14.5); WHITE BLOOD COUNT 4.8 x10^3/uL (4.0-11.0)
[2017-07-25 04:53] LABS: HEMOGLOBIN ISTAT 7.8 gm/dL; POTASSIUM ISTAT 4.4 mmol/L (3.5-5.0)
[2017-07-25 05:51] VITALS: BP 132/86
--- NOTE | 2017-07-25 09:39 | RAD ---
EXAM: Chest, single view. HISTORY: Chest pain. COMPARISON: 07/02/2017 FINDINGS: A frontal view of the chest is obtained. There is no infiltrate, effusion or pneumothorax. The heart is normal in size. There is a left port catheter with the tip in the superior vena cava. There is evidence of bilateral distal clavicular resection. There is a left shoulder joint loose body. IMPRESSION: No acute pulmonary finding. Electronically signed by: Yuliya Thurman MD (07/25/2017 9:36 AM) [id number]
== END 2017-07-25 06:18 | disposition short-term general hospital (02) ==
LOC: ER 03:12
DX: I12.0 Hypertensive chronic kidney disease with stage 5 chronic kidney disease or end stage renal disease (principal); N18.6 End stage renal disease; J02.9 Acute pharyngitis, unspecified; I25.10 Atherosclerotic heart disease of native coronary artery without angina pectoris; Q61.3 Polycystic kidney, unspecified; K21.9 Gastro-esophageal reflux disease without esophagitis; D64.9 Anemia, unspecified; F41.9 Anxiety disorder, unspecified; Z91.19 Patient's noncompliance with other medical treatment and regimen; Z99.2 Dependence on renal dialysis; Z88.8 Allergy status to other drugs, medicaments and biological substances; Z88.6 Allergy status to analgesic agent; Z91.041 Radiographic dye allergy status
CPT/HCPCS: 36415; 71045; 80047; 84484; 85025; 93005; 96372; 99285; J2270

== ENCOUNTER 2017-08-05 05:57 | Emergency (ER) | payer MEDICARE, OTHER ==
[~2017-08-05] VITALS: Ht 167.6 cm; Wt 95.8 kg
[2017-08-05] MEDS ORDERED: HYDROcodone/APAP 5/325MG 1 TAB TABLET PO ONE (06:45)
--- NOTE | 2017-08-05 06:49 | PHYS DOC ---
Past History Past Medical History: Anxiety, CAD, GERD, Hypertension, Renal Failure Additional Past Medical Histor: chronic renal failure on hemodialysis Past Surgical History: Cholecystectomy, Hysterectomy, Other Smoking: Non-smoker Alcohol Use: None Drug Use: None Adult General Chief Complaint Chief Complaint: [facility] HPI 51-year-old female patient with multiple medical problems and chronic renal failure on hemodialysis with frequent emergency room visits in by EMS with complaining of headache. Patient changed her complaint states she had soreness in her buttock for 2 weeks that getting worse gradually and rated her pain 8/ 10. Patient states she did not seek medical attention for this problem and denies fever and chills and drainage of pus. Patient also complaining of chronic migraine headache that getting worse since last night as a throbbing pain in frontal area without nausea, vomiting, fever and chills, focal neuro deficit and associated pain is like her usual migraine headache. Patient rated her pain 8/10 and states she took Tylenol without improvement of her pain. Patient had appointment for dialysis this morning and missed her ride. Patient usually calls 911 when she misses her dialysis with different complaining including chest pain. Review of Systems Review of Systems Constitutional: Denies fever or chills [] Eyes: Denies change in visual acuity, redness, or eye pain [] HENT: Denies nasal congestion or sore throat [] Respiratory: Denies cough or shortness of breath [] Cardiovascular: No additional information not addressed in HPI [] GI: Denies abdominal pain, nausea, vomiting, bloody stools or diarrhea [] : Denies dysuria or hematuria [] Musculoskeletal: Denies back pain or joint pain [] Integument: Denies rash, reports skin lesions [] Neurologic: Denies focal weakness or sensory changes , reports headache[] Endocrine: Denies polyuria or polydipsia [] All other systems were reviewed and found to be within normal limits, except as documented in this note. Current Medications Current Medications Current Medications Medications (Trade) Dose Ordered Sig/Vitaliy Start Time Stop Time Status Last Admin Dose Admin Acetaminophen/ Hydrocodone Bitart (Lortab 5/325) 1 tab 1X ONCE 08/05/17 06:30 08/05/17 06:31 UNV Allergies Allergies Allergies Coded Allergies Type Severity Reaction Last Updated Verified Iodinated Contrast- Oral and IV Dye Allergy Severe 08/03/14 Yes shellfish derived Allergy Intermediate 08/03/14 Yes caffeine Allergy Mild due to kidney transplant 08/03/14 Yes ibuprofen Allergy Mild 08/03/14 Yes red dye Allergy Mild due to kidney transplant 08/03/14 Yes I S O L A T I O N *CONTACT* Allergy Unknown 04/15/15 Yes Physical Exam Physical Exam Constitutional: Well nourished, no acute distress, non-toxic appearance. [] HENT: Normocephalic, atraumatic, oropharynx moist, no oral exudates, nose normal. [] Eyes: PERRLA, EOMI, conjunctiva normal, no discharge. [] Neck: Normal range of motion, no tenderness, supple, no stridor. [] Cardiovascular:Heart rate regular rhythm, no murmur [] Lungs & Thorax: Bilateral breath sounds clear to auscultation [] Abdomen: Bowel sounds normal, soft, no tenderness, no masses, no pulsatile masses. [] Skin: Warm, dry, no erythema, no rash, bilateral 2 x 3 centimeters grade 1 pressure sore in gluteal area without sign of infection. [] Back: No tenderness, no CVA tenderness. [] Extremities: No tenderness, no cyanosis, no clubbing, ROM intact, no edema. [] Neurologic: Alert and oriented X 3, normal motor function, normal sensory function, no focal deficits noted. [] Psychologic: Affect normal, judgement normal, mood normal. [] Current Patient Data Vital Signs Vital Signs Date Time Temp Pulse Resp B/P (MAP) Pulse Ox O2 Delivery O2 Flow Rate FiO2 08/05/17 05:57 98.0 81 20 100 Room Air EKG EKG [] Radiology/Procedures Radiology/Procedures [] Course & Med Decision Making Course & Med Decision Making Pertinent Labs reviewed. (See chart for details) Evaluation of patient in ER showed 51-year-old female patient brought in by EMS after missing her Lasix this morning with changing complaining. Patient had the same presentation yesterday. Patient had grade 1 patient's psoriatic gluteal area without sign of infection. Patient treated with [place]. Labs showed normal potassium and patient instructed to follow up with her dialysis. At time of discharge by ER Nurse patient started complaining of chest pain like her usual complaining of chest pain but when I evaluated the patient at the same time she denied chest pain and stated she feels better. Dragon Disclaimer Dragon Disclaimer This electronic medical record was generated, in whole or in part, using a voice recognition dictation system. Departure Departure: Impression: Primary Impression: Pressure sore of left ischium, stage 1 Additional Impressions: Migraine Chronic renal failure Noncompliance Disposition: HOME, SELF-CARE (At 0756) Condition: STABLE Patient Instructions: Migraine Headache, Pressure Ulcer Additional Instructions: Apply Neosporin ointment on pressure sore Follow-up with your dialysis appointment as scheduled Follow-up with your primary care physician in 3-5 days Return to ER if not getting better Problem Qualifiers SUNSHINE LIU MD August 05, 2017 06:49
[2017-08-05 07:50] LABS: CALCIUM 7.8 mg/dL (8.5-10.1); CREATININE 7.1 mg/dL (0.6-1.0); GFR 7.3; POTASSIUM 4.2 mmol/L (3.5-5.1)
[2017-08-05] MEDS ORDERED: HEPARIN PF 500 UNIT/5 ML DISP.SYRIN. IV ONE (08:00)
[2017-08-05 08:15] VITALS: BP 140/84
== END 2017-08-05 08:30 | disposition home or self-care (01) ==
LOC: ER 05:57
DX: G43.909 Migraine, unspecified, not intractable, without status migrainosus (principal); L89.321 Pressure ulcer of left buttock, stage 1; I12.0 Hypertensive chronic kidney disease with stage 5 chronic kidney disease or end stage renal disease; N18.6 End stage renal disease; F41.9 Anxiety disorder, unspecified; I25.10 Atherosclerotic heart disease of native coronary artery without angina pectoris; K21.9 Gastro-esophageal reflux disease without esophagitis; Z91.19 Patient's noncompliance with other medical treatment and regimen; Z99.2 Dependence on renal dialysis; Z88.6 Allergy status to analgesic agent; Z91.041 Radiographic dye allergy status; Z88.5 Allergy status to narcotic agent; Z91.013 Allergy to seafood
CPT/HCPCS: 36415; 80048; 96374; 99284-25

== ENCOUNTER 2017-10-11 10:00 | Emergency (ER) | payer MEDICARE, OTHER ==
[~2017-10-11] VITALS: Ht 167.6 cm; Wt 95.8 kg
--- NOTE | 2017-10-11 10:05 | PHYS DOC ---
Past History Past Medical History: Anxiety, CAD, GERD, Hypertension, Renal Failure Additional Past Medical Histor: chronic renal failure on hemodialysis Past Surgical History: Cholecystectomy, Hysterectomy, Other Smoking: Non-smoker Alcohol Use: None Drug Use: None Adult General Chief Complaint Chief Complaint: SORE THROAT HPI HPI 51-year-old female with history of end-stage renal disease presenting the emergency department today with sore throat. She denies any fevers at home. Her sore throat is been present for about 2 weeks. She also has mild headache that is nonradiating. She reports that her face seems mildly puffy. She reports pain when she swallows but denies drooling or stridor. Review of systems is negative for chest pain shortness of breath abdominal pain nausea vomiting. She denies neck stiffness confusion or meningismus. She denies back pain. She reports having dialysis yesterday. All other review of systems is negative unless otherwise noted in history of present illness. ED course: 51-year-old female presenting with sore throat. On examination patient has mild erythema of the pharynx without any signs of peritonsillar abscess. Normal range of motion of the neck. The patient has a wound on her right arm status post surgery about 2 weeks ago that is healing well. Otherwise lungs are clear bilaterally abdomen is soft and nontender. Strep test obtained and negative for strep throat. Blood tests obtained. Blood work obtained which shows low albumin. Otherwise unremarkable. Strep test negative. Patient was able to tolerate oral intake in the emergency department without difficulty. We will discharge the patient to follow-up with nephrology in clinic tomorrow at dialysis. The patient has been examined and was not found to have an emergency medical condition. The patient was then discharged home in stable condition. They were to return if their symptoms worsened or if they were concerned for any reason. They were also instructed to return to the emergency department if they were unable to get the recommended and appropriate follow-up. Face-to- face discharge instructions and return precautions were given. Patient's questions were answered to their satisfaction. Patient is comfortable with plan. Review of Systems Review of Systems SEE ABOVE. Allergies Allergies Allergies Coded Allergies Type Severity Reaction Last Updated Verified Iodinated Contrast- Oral and IV Dye Allergy Severe 08/03/14 Yes shellfish derived Allergy Intermediate 08/03/14 Yes caffeine Allergy Mild due to kidney transplant 08/03/14 Yes ibuprofen Allergy Mild 08/03/14 Yes red dye Allergy Mild due to kidney transplant 08/03/14 Yes I S O L A T I O N *CONTACT* Allergy Unknown 04/15/15 Yes Physical Exam Physical Exam Constitutional: Well developed, well nourished, no acute distress, non-toxic appearance. [] HENT: Normocephalic, atraumatic, bilateral external ears normal, oropharynx moist, no oral exudates, nose normal. Eyes: PERRLA, EOMI, conjunctiva normal, no discharge. [] Neck: Normal range of motion, no tenderness, supple, no stridor. Cardiovascular:Heart rate regular rhythm, no murmur Lungs & Thorax: Bilateral breath sounds clear to auscultation [] Abdomen: Bowel sounds normal, soft, no tenderness, no masses, no pulsatile masses. Skin: Warm, dry, no erythema, no rash. Back: No tenderness, no CVA tenderness. [] Extremities: No tenderness, no cyanosis, no clubbing, ROM intact, no edema. Neurologic: Alert and oriented X 3, normal motor function, normal sensory function, no focal deficits noted. [] Psychologic: Affect normal, judgement normal, mood normal. EKG EKG [] Radiology/Procedures Radiology/Procedures [] Course & Med Decision Making Course & Med Decision Making Pertinent Labs and Imaging studies reviewed. (See chart for details) [] Dragon Disclaimer Dragon Disclaimer This electronic medical record was generated, in whole or in part, using a voice recognition dictation system. Departure Departure: Impression: Primary Impression: Pharyngitis Additional Impression: Hypoalbuminemia Disposition: HOME, SELF-CARE Condition: STABLE Referrals: KARON ELLIS (PCP) Additional Instructions: Thank you for allowing us to participate in your care today. Return to the emergency department you have any new or worsening symptoms, or if you are concerned for any reason. Return to emergency department if you have any new or concerning symptoms including but not limited to fever, chills, nausea, vomiting, intractable pain, any new rashes, chest pain, shortness of air , uncontrolled bleeding, difficulty breathing, and/or vision loss. Follow up with your primary care physician within 2-3 days. Follow up with nephrology (kidney doctor) at dialysis tomorrow. Call your Primary Doctor tomorrow and inform them of your visit today. If you do not have a primary care provider we are happy to provide you with a list of our primary care providers contact information. This condition should be evaluated by your primary care physician and any recommended consulting services for continued management within 2-3 days after discharge. If at any time, you are having difficulty getting into your primary care doctor or a specialist, return to the emergency department. Problem Qualifiers ZARIA SERRANO MD Oct 11, 2017 10:05
[2017-10-11 11:05] LABS: BASO % 1 % (0-3); EOS % 1 % (0-3); HEMATOCRIT 30.5 % (36.0-47.0); LYMPH # 1.1 x10^3/uL (1.0-4.8); LYMPH % 25 % (24-48); MEAN CORPUSCULAR HEMOGLOBIN 31 pg (25-35); MEAN CORPUSCULAR HGB CONC 33 g/dL (31-37); MEAN CORPUSCULAR VOLUME 95 fL (79-100); MONO # 0.5 x10^3/uL (0.0-1.1); MONO % 10 % (0-9); NEUT # 2.9 x10^3uL (1.8-7.7); NEUT % 64 % (31-73); PLATELET COUNT 110 x10^3/uL (140-400); RED BLOOD COUNT 3.21 x10^6/uL (3.50-5.40); RED CELL DISTRIBUTION WIDTH 17.9 % (11.5-14.5); WHITE BLOOD COUNT 4.5 x10^3/uL (4.0-11.0)
[2017-10-11 11:20] LABS: ALBUMIN 1.6 g/dL (3.4-5.0); ALBUMIN/GLOBULIN RATIO 0.4 (1.0-1.7); CREATININE 4.9 mg/dL (0.6-1.0); GFR 11.2; POTASSIUM 3.9 mmol/L (3.5-5.1); TOTAL BILIRUBIN 0.6 mg/dL (0.2-1.0); TOTAL PROTEIN 5.3 g/dL (6.4-8.2)
[2017-10-11 12:18] VITALS: BP 143/79
== END 2017-10-11 12:20 | disposition home or self-care (01) ==
LOC: ER 10:00
DX: J02.9 Acute pharyngitis, unspecified (principal); E88.09 Other disorders of plasma-protein metabolism, not elsewhere classified; R51 Headache; F41.9 Anxiety disorder, unspecified; I25.10 Atherosclerotic heart disease of native coronary artery without angina pectoris; K21.9 Gastro-esophageal reflux disease without esophagitis; I10 Essential (primary) hypertension; I12.0 Hypertensive chronic kidney disease with stage 5 chronic kidney disease or end stage renal disease; N18.6 End stage renal disease; Z99.2 Dependence on renal dialysis; Z88.6 Allergy status to analgesic agent; Z91.041 Radiographic dye allergy status; Z91.013 Allergy to seafood; Z88.8 Allergy status to other drugs, medicaments and biological substances
CPT/HCPCS: 36415; 80053; 85025; 87070; 87880; 99284